=== PATIENT | female | born 1935 | race Caucasian/White ===

== ENCOUNTER → 2016-07-29 | Outpatient (REF) | payer MEDICARE ==
[~2016-07-29] MED LIST: /PANT40TA OR; /WARF25TA PO; ACET-654 PO; ACET65TA OR; ACIPHEX PO; ALDA25TA2 PO; ALEN10TA2 OR; ALEV220C2 PO; ASCO500T PO; ASPI81CH3 PO; ASPIRIN PO; BACITAB3 PO; CALCIUM SUPPLEMENT PO; CIPR500T3 PO; CRES40TA PO; DAILTAB51 PO; DEMA20TA6 PO; DOCU100C PO; DRIS50002 PO; FERR32TA PO; FOLI1TAB2 PO; FURO20TA2 PO; HEPA50VL SQ; LASI40TA PO; LIPI80TA PO; LIPITOR PO; LISI10TA4 OR; LISI10TA4 PO; LISI2.5T3 PO; LISIPOW PO; LORTAB ELIXIR PO; LORTABELIX PO; METO-346 PO; METO25TA74 PO; METR500T10 PO; MILKSUS5 PO; NAPRPOW4 PO; PANT40TA2 PO; PANTOPRAZOLE PO; POTA10CA PO; PRED25TA PO; RECL5INJ2 IV; REFR0.5D8 OD; SIMV80TA OR; TYLE325T5 PO; VICO5TAB PO; VIT D 2000 PO; VITA-56 OR; VITA500046 PO; VITAMIN D PO; VITAMIN E PO; ZOLO50TA OR
[2016-07-29 18:48] LABS: CHOLESTEROL LEVEL 189 MG/DL (<200); TOTAL PROTEIN 7.9 GM/DL (6.4-8.2); TRIGLYCERIDES LEVEL 287 MG/DL (<150)
[2016-07-31 14:00] LABS: ALBUMIN 3.97 GM/DL (3.29-5.55); ALBUMIN % 50.2 % (55.8-66.1); GAMMA GLOBULIN % 17.1 % (11.1-18.8)
== END ==
LOC: M LABDRAW1 16:04
PROVIDERS: ATTEND Family Medicine
DX: E78.5 Hyperlipidemia, unspecified (principal); E11.9 Type 2 diabetes mellitus without complications; E21.3 Hyperparathyroidism, unspecified

== ENCOUNTER → 2016-07-31 | Outpatient (REF) | payer MEDICARE ==
[2016-07-31 15:50] LABS: BASO % 0.4 % (0.0-1.0); EOS # 0.4 K/mm3 (0.0-0.50); EOS % 3.8 % (0.0-3.0); LARGE UNSTAINED CELL # 0.3 K/mm3 (0.0-0.4); LARGE UNSTAINED CELL % 3.5 % (0.0-4.0); LYMPH % 20.3 % (24.0-44.0); MEAN CORPUSCULAR HEMOGLOBIN 30.4 pg (27.0-33.0); MEAN CORPUSCULAR HGB CONC 33.2 g/dl (32.0-36.5); MEAN CORPUSCULAR VOLUME 91.6 fl (80.0-96.0); MONO # 0.6 K/mm3 (0.0-0.8); MONO % 6.4 % (0.0-5.0); NEUTROPHILS # 6.4 K/mm3 (1.8-7.7); NEUTROPHILS % 65.6 % (36.0-66.0); PLATELET COUNT, AUTOMATED 218 k/mm3 (150-450); RED CELL DISTRIBUTION WIDTH 13.7 % (11.5-14.5); WHITE BLOOD COUNT 9.8 K/mm3 (4.0-10.0)
[2016-07-31 16:01] LABS: ALBUMIN 3.9 GM/DL (3.2-5.2); ALBUMIN/GLOBULIN RATIO 0.91 (1.00-1.93); BILIRUBIN,TOTAL 0.5 MG/DL (0.2-1.0); CALCIUM LEVEL 10.2 MG/DL (8.8-10.2); CREATININE FOR GFR 1.09 MG/DL (0.55-1.02); GLOMERULAR FILTRATION RATE 51.3 (>32); MAGNESIUM LEVEL 1.8 MG/DL (1.8-2.4); PERCENT SATURATION 16.9 % (13.2-37.4); POTASSIUM SERUM 3.8 MEQ/L (3.5-5.1); TOTAL PROTEIN 8.2 GM/DL (6.4-8.2)
[2016-07-31 16:24] LABS: FREE T4 1.21 NG/DL (0.76-1.46)
== END ==
LOC: M LABDRAW1 11:49
PROVIDERS: ATTEND Family Medicine
DX: D50.9 Iron deficiency anemia, unspecified (principal); E78.5 Hyperlipidemia, unspecified

== ENCOUNTER 2016-09-19 13:48 | Outpatient (RCR) | payer MEDICARE | END 2016-09-23 | LOC: M CR 13:48 | PROVIDERS: ATTEND Internal Medicine Cardiovascular Disease | DX: Z51.89 Encounter for other specified aftercare (principal); Z95.1 Presence of aortocoronary bypass graft; I25.10 Atherosclerotic heart disease of native coronary artery without angina pectoris ==

== ENCOUNTER 2016-10-06 12:47 | Outpatient (RCR) | payer MEDICARE | END 2016-10-24 | LOC: M CR 12:47 | PROVIDERS: ATTEND Internal Medicine Cardiovascular Disease | DX: Z51.89 Encounter for other specified aftercare (principal); I25.10 Atherosclerotic heart disease of native coronary artery without angina pectoris; Z95.1 Presence of aortocoronary bypass graft ==

== ENCOUNTER → 2016-10-15 | Outpatient (REF) | payer MEDICARE ==
[2016-10-15 18:36] LABS: BASO % 0.4 % (0.0-1.0); EOS # 0.5 K/mm3 (0.0-0.50); EOS % 6.6 % (0.0-3.0); LARGE UNSTAINED CELL # 0.2 K/mm3 (0.0-0.4); LARGE UNSTAINED CELL % 3.4 % (0.0-4.0); LYMPH # 1.9 K/mm3 (1.5-4.5); LYMPH % 23.6 % (24.0-44.0); MEAN CORPUSCULAR HEMOGLOBIN 30.4 pg (27.0-33.0); MEAN CORPUSCULAR HGB CONC 33.4 g/dl (32.0-36.5); MEAN CORPUSCULAR VOLUME 91.1 fl (80.0-96.0); MONO # 0.5 K/mm3 (0.0-0.8); MONO % 6.6 % (0.0-5.0); NEUTROPHILS # 4.1 K/mm3 (1.8-7.7); NEUTROPHILS % 59.4 % (36.0-66.0); PLATELET COUNT, AUTOMATED 201 k/mm3 (150-450)
[2016-10-15 18:38] LABS: ALBUMIN 3.9 GM/DL (3.2-5.2); ALBUMIN/GLOBULIN RATIO 1.03 (1.00-1.93); BILIRUBIN,TOTAL 0.5 MG/DL (0.2-1.0); CALCIUM LEVEL 9.9 MG/DL (8.8-10.2); CREATININE FOR GFR 1.05 MG/DL (0.55-1.02); GLOMERULAR FILTRATION RATE 53.4 (>32); MAGNESIUM LEVEL 2.2 MG/DL (1.8-2.4); PERCENT SATURATION 17.9 % (13.2-37.4); TOTAL PROTEIN 7.7 GM/DL (6.4-8.2)
== END ==
LOC: M LABDRAW1 16:58
PROVIDERS: ATTEND Family Medicine
DX: D50.9 Iron deficiency anemia, unspecified (principal); E21.3 Hyperparathyroidism, unspecified; N18.2 Chronic kidney disease, stage 2 (mild)

== ENCOUNTER → 2017-01-15 | Outpatient (REF) | payer MEDICARE ==
[2017-01-15 13:51] LABS: ALBUMIN 3.4 GM/DL (3.2-5.2); ALBUMIN/GLOBULIN RATIO 0.92 (1.00-1.93); BILIRUBIN,TOTAL 0.5 MG/DL (0.2-1.0); CALCIUM LEVEL 10.1 MG/DL (8.8-10.2); CREATININE FOR GFR 1.16 MG/DL (0.55-1.02); GLOMERULAR FILTRATION RATE 47.6 (>32); POTASSIUM SERUM 4.3 MEQ/L (3.5-5.1); TOTAL PROTEIN 7.1 GM/DL (6.4-8.2)
== END ==
LOC: M LABDRAW1 11:24
PROVIDERS: ATTEND Family Medicine
DX: E21.3 Hyperparathyroidism, unspecified (principal)

== ENCOUNTER 2017-01-21 11:31 | Outpatient (CLI) | payer MEDICARE ==
[~2017-01-21 11:31] MED LIST changes: -ACET-654 PO; +ACET1TAB17 PO; +BACITAB PO; -BACITAB3 PO; -DOCU100C PO; +DOCU100C16 PO; -FOLI1TAB2 PO; +FOLI1TAB4 PO; +METO1TAB32 PO; -METO25TA74 PO; +METR1TAB66 PO; -METR500T10 PO; +ZOLEDRONIC ACID 5 MG in APPROPRIATE DILUENT 1 EA IV ONE
[2017-01-21] MEDS ORDERED: DEMA20TA6 PO (12:29)
== END 2017-01-21 13:15 | disposition home or self-care (01) ==
LOC: M INFU 11:31
PROVIDERS: ATTEND Family Medicine
DX: M81.0 Age-related osteoporosis without current pathological fracture (principal)
CPT/HCPCS: 96365; J3489

== ENCOUNTER → 2017-02-09 | Outpatient (CLI) | payer MEDICARE ==
[~2017-02-09] MED LIST changes: -ZOLEDRONIC ACID 5 MG in APPROPRIATE DILUENT 1 EA IV ONE
--- NOTE | 2017-02-09 14:31 | REPMRS ---
Patient History The patient states she has not had a clinical breast exam in over a year. Patient is postmenopausal and has history of squamous cell at age 78. Family history of breast cancer in maternal grandmother at age 80 and unknown cancer in paternal grandmother at age 80. Took hormonal contraceptives for 2 years. Took estrogen for 20 years. Digital Woman Screen Mammo: February 09, 2017 - Exam #: [id number] Bilateral CC and MLO view(s) were taken. Technologist: Tana Youssef, Technologist Prior study comparison: February 05, 2016, bilateral digital mammo screening bilat, performed at [facility]. January 12, 2015, digital woman screen mammo performed at [facility]. July 29, 2013, bilateral bilat screen digital mammo, performed at [facility] ([facility]). FINDINGS: There are scattered fibroglandular densities. There has been no change in the appearance of the mammogram from the prior studies. There is a mild amount of scattered fibroglandular density which is fairly symmetric. There is no interval development of dominant mass, architectural distortion, or clustered microcalcification suggestive of malignancy. ASSESSMENT: BI-RADS/ACR category 1 mammogram. Negative. Recommendation Routine screening mammogram in 1 year (for women over age 40). This mammogram was interpreted with the aid of an FDA-approved computer-aided dectection system. Electronically Signed By: Frankie Greco MD 02/09/17 1728
== END ==
LOC: M WHC 13:01
PROVIDERS: ATTEND Family Medicine
DX: Z12.31 Encounter for screening mammogram for malignant neoplasm of breast (principal); Z80.3 Family history of malignant neoplasm of breast

== ENCOUNTER → 2017-03-05 | Outpatient (REF) | payer MEDICARE ==
[2017-03-05 13:25] LABS: ALBUMIN 3.9 GM/DL (3.2-5.2); ALBUMIN/GLOBULIN RATIO 0.98 (1.00-1.93); BILIRUBIN,TOTAL 0.6 MG/DL (0.2-1.0); CALCIUM LEVEL 10.6 MG/DL (8.8-10.2); CREATININE FOR GFR 1.3 MG/DL (0.55-1.02); GLOMERULAR FILTRATION RATE 41.7 (>32); POTASSIUM SERUM 4.3 MEQ/L (3.5-5.1); TOTAL PROTEIN 7.9 GM/DL (6.4-8.2)
[2017-03-07 00:06] LABS: FREE KAPPA LIGHT CHAINS SERUM 31.7 mg/L (3.3-19.4); FREE LAMBDA LIGHT CHAINS SERUM 26.9 mg/L (5.7-26.3); KAPPA/LAMBDA RATIO SERUM 1.18 (0.26-1.65)
== END ==
LOC: M LABDRAW1 11:57
PROVIDERS: ATTEND Family Medicine
DX: E78.5 Hyperlipidemia, unspecified (principal); E21.3 Hyperparathyroidism, unspecified; D47.2 Monoclonal gammopathy; E11.9 Type 2 diabetes mellitus without complications

== ENCOUNTER → 2017-06-17 | Outpatient (CLI) | payer MEDICARE ==
[2017-06-17 16:00] LABS: BASO % 0.5 % (0.0-1.0); EOS # 0.2 10^3/uL (0.0-0.50); EOS % 2.9 % (0.0-3.0); IMMATURE GRANULOCYTE % 0.3 % (0-0); LYMPH # 1.4 10^3/uL (1.5-4.5); LYMPH % 21.6 % (24.0-44.0); MEAN CORPUSCULAR HEMOGLOBIN 31.1 pg (27.0-33.0); MEAN CORPUSCULAR HGB CONC 32.5 g/dl (32.0-36.5); MEAN CORPUSCULAR VOLUME 95.5 fl (80.0-96.0); MONO # 0.5 10^3/uL (0.0-0.8); MONO % 7.5 % (0.0-5.0); NEUTROPHILS # 4.4 10^3/uL (1.8-7.7); NEUTROPHILS % 67.2 % (36.0-66.0); PLATELET COUNT, AUTOMATED 178 10^3/uL (150-450); RED CELL DISTRIBUTION WIDTH 13.4 % (11.5-14.5); WHITE BLOOD COUNT 6.5 10^3/uL (4.0-10.0)
[2017-06-17 16:16] LABS: ALBUMIN 3.7 GM/DL (3.2-5.2); ALKALINE PHOSPHATASE 58 U/L (45-117); ALT/SGPT 22 U/L (12-78); ANION GAP 5 MEQ/L (8-16); AST/SGOT 14 U/L (7-37); BILIRUBIN,TOTAL 0.5 MG/DL (0.2-1.0); BLOOD UREA NITROGEN 23 MG/DL (7-18); CALCIUM LEVEL 9.9 MG/DL (8.8-10.2); CARBON DIOXIDE LEVEL 28 MEQ/L (21-32); CHLORIDE LEVEL 104 MEQ/L (98-107); CREATININE FOR GFR 1.02 MG/DL (0.55-1.02); FERRITIN 105 NG/ML (8-252); GLOMERULAR FILTRATION RATE 55.2 (>32); GLUCOSE, FASTING 126 MG/DL (83-110); PERCENT SATURATION 21.4 % (13.2-45.0); POTASSIUM SERUM 4.2 MEQ/L (3.5-5.1); SODIUM LEVEL 137 MEQ/L (136-145); TOTAL IRON BINDING CAPACITY 360 UG/DL (250-450); TOTAL PROTEIN 7.4 GM/DL (6.4-8.2)
[2017-06-21 00:06] LABS: FREE KAPPA LIGHT CHAINS SERUM 25.8 mg/L (3.3-19.4); FREE LAMBDA LIGHT CHAINS SERUM 25.3 mg/L (5.7-26.3); KAPPA/LAMBDA RATIO SERUM 1.02 (0.26-1.65)
[2017-06-23 10:57] LABS: ALBUMIN 4.01 GM/DL (3.29-5.55); ALBUMIN % 54.2 % (55.8-66.1); GAMMA GLOBULIN % 15.1 % (11.1-18.8)
== END ==
LOC: M LABDRAW1 11:08
PROVIDERS: ATTEND Family Medicine
DX: D50.9 Iron deficiency anemia, unspecified (principal); N18.3 Chronic kidney disease, stage 3 (moderate); D47.2 Monoclonal gammopathy; E11.9 Type 2 diabetes mellitus without complications; E21.3 Hyperparathyroidism, unspecified

== ENCOUNTER 2017-07-27 10:19 | Inpatient (IN) | payer MEDICARE ==
[2017-07-27] MEDS: ONDANSETRON 4MG/2ML VIAL (J2405) IV (11:24)
[2017-07-27] MEDS: MORPHINE 4 MG/ML 1ML SYRINGE IV (11:25)
[2017-07-27 11:30] LABS: BASO % 0.1 % (0.0-1.0); HEMATOCRIT 43.9 % (36.0-47.0); HEMOGLOBIN 14.8 g/dl (12.0-16.0); IMMATURE GRANULOCYTE # 0.1 10^3/uL (0-0); IMMATURE GRANULOCYTE % 0.4 % (0-0); LYMPH # 0.7 10^3/uL (1.5-4.5); LYMPH % 3.8 % (24.0-44.0); MEAN CORPUSCULAR HEMOGLOBIN 31.6 pg (27.0-33.0); MEAN CORPUSCULAR HGB CONC 33.7 g/dl (32.0-36.5); MEAN CORPUSCULAR VOLUME 93.6 fl (80.0-96.0); MONO # 0.8 10^3/uL (0.0-0.8); MONO % 4.7 % (0.0-5.0); NEUTROPHILS # 15.5 10^3/uL (1.8-7.7); PLATELET COUNT, AUTOMATED 205 10^3/uL (150-450); RED BLOOD COUNT 4.69 10^6/uL (4.00-5.40); RED CELL DISTRIBUTION WIDTH 12.9 % (11.5-14.5); WHITE BLOOD COUNT 17.1 10^3/uL (4.0-10.0)
[2017-07-27] MEDS: NS 500 ML IV (11:45)
[2017-07-27 11:47] LABS: ALBUMIN 3.8 GM/DL (3.2-5.2); ALBUMIN/GLOBULIN RATIO 0.78 (1.00-1.93); ALKALINE PHOSPHATASE 64 U/L (45-117); ALT/SGPT 18 U/L (12-78); AMYLASE 46 U/L (25-115); ANION GAP 8 MEQ/L (8-16); AST/SGOT 18 U/L (7-37); BILIRUBIN,TOTAL 1.3 MG/DL (0.2-1.0); BLOOD UREA NITROGEN 31 MG/DL (7-18); CALCIUM LEVEL 11.2 MG/DL (8.8-10.2); CARBON DIOXIDE LEVEL 27 MEQ/L (21-32); CHLORIDE LEVEL 101 MEQ/L (98-107); CREATININE FOR GFR 1.42 MG/DL (0.55-1.02); GLOMERULAR FILTRATION RATE 37.7 (>32); GLUCOSE, FASTING 173 MG/DL (83-110); LIPASE 152 U/L (73-393); POTASSIUM SERUM 3.9 MEQ/L (3.5-5.1); SODIUM LEVEL 136 MEQ/L (136-145); TOTAL PROTEIN 8.7 GM/DL (6.4-8.2)
[2017-07-27] MEDS ORDERED: ACETAMINOPHEN TAB 650MG DOSE (2X325MG) PO (15:15)
[2017-07-27] MEDS: LR 1,000 ML IV (15:34)
[2017-07-27] MEDS: PANTOPRAZOLE 40MG INJ (PROTONIX) (C9113) IV (17:20)
[2017-07-27] MEDS: METOPROLOL SUCC *XL* 25MG TAB (TopROL *XL*) PO (21:00)
[2017-07-28] MEDS: LR 1,000 ML IV ×2 (06:09→18:40)
[2017-07-28 07:50] LABS: ANION GAP 6 MEQ/L (8-16); BLOOD UREA NITROGEN 25 MG/DL (7-18); CARBON DIOXIDE LEVEL 28 MEQ/L (21-32); CHLORIDE LEVEL 106 MEQ/L (98-107); CREATININE FOR GFR 0.89 MG/DL (0.55-1.02); GLOMERULAR FILTRATION RATE > 60.0 (>32); GLUCOSE, FASTING 96 MG/DL (83-110); POTASSIUM SERUM 3.8 MEQ/L (3.5-5.1); SODIUM LEVEL 140 MEQ/L (136-145)
[2017-07-28 07:51] LABS: BASO % 0.2 % (0.0-1.0); EOS # 0.1 10^3/uL (0.0-0.50); EOS % 0.9 % (0.0-3.0); HEMATOCRIT 36.5 % (36.0-47.0); IMMATURE GRANULOCYTE % 0.2 % (0-0); LYMPH # 1.1 10^3/uL (1.5-4.5); LYMPH % 13.8 % (24.0-44.0); MEAN CORPUSCULAR HEMOGLOBIN 32.1 pg (27.0-33.0); MEAN CORPUSCULAR HGB CONC 34.2 g/dl (32.0-36.5); MEAN CORPUSCULAR VOLUME 93.6 fl (80.0-96.0); MONO # 0.7 10^3/uL (0.0-0.8); MONO % 8.4 % (0.0-5.0); NEUTROPHILS # 6.3 10^3/uL (1.8-7.7); NEUTROPHILS % 76.5 % (36.0-66.0); PLATELET COUNT, AUTOMATED 131 10^3/uL (150-450); RED CELL DISTRIBUTION WIDTH 12.7 % (11.5-14.5); WHITE BLOOD COUNT 8.2 10^3/uL (4.0-10.0)
[2017-07-28 07:54] LABS: ADD MANUAL DIFFER NO; DIFF SLIDE NUMBER 82; HEMOGLOBIN 12.5 g/dl (12.0-16.0)
[2017-07-28] MEDS: PANTOPRAZOLE 40MG INJ (PROTONIX) (C9113) IV (09:55)
[2017-07-28] MEDS: ONDANSETRON 4MG/2ML VIAL (J2405) IV (13:36)
[2017-07-28] MEDS: MORPHINE 2 MG/ML 1ML SYRINGE IV (16:19)
[2017-07-28] MEDS: METOPROLOL SUCC *XL* 25MG TAB (TopROL *XL*) PO (21:00)
[2017-07-29] MEDS: PANTOPRAZOLE 40MG INJ (PROTONIX) (C9113) IV (08:13)
[2017-07-29] MEDS: LR 1,000 ML IV ×2 (08:13→21:20)
[2017-07-29] MEDS: METOPROLOL SUCC *XL* 25MG TAB (TopROL *XL*) PO (21:30)
[2017-07-30] MEDS: PANTOPRAZOLE 40MG INJ (PROTONIX) (C9113) IV (07:46)
[2017-07-30] MEDS: TORSEMIDE 20 MG TAB PO (11:00)
[2017-07-30] MEDS: DOCUSATE SODIUM 100 MG CAP PO (11:22)
[2017-07-30] MEDS: ASPIRIN 81 MG ENTERIC TAB PO (11:22)
[2017-07-30] MEDS: SPIRONOLACTONE 25 MG TAB PO (11:22)
[2017-07-30] MEDS ORDERED: PANTOPRAZOLE 40MG TAB (PROTONIX) PO (21:00)
[2017-07-30] MEDS ORDERED: LISINOPRIL *2.5 MG* TAB PO (21:00)
== END 2017-07-30 17:56 | disposition home health service (06) | DRG 390 ==
LOC: M ED 10:19 → M ED INP 15:15 → M MSPAV 16:24
DX: K56.50 Intestinal adhesions [bands], unspecified as to partial versus complete obstruction (principal); K21.9 Gastro-esophageal reflux disease without esophagitis; I25.10 Atherosclerotic heart disease of native coronary artery without angina pectoris; I10 Essential (primary) hypertension; E78.5 Hyperlipidemia, unspecified; Z90.49 Acquired absence of other specified parts of digestive tract; Z96.652 Presence of left artificial knee joint; Z95.3 Presence of xenogenic heart valve; Z95.1 Presence of aortocoronary bypass graft; Z79.82 Long term (current) use of aspirin; Z79.899 Other long term (current) drug therapy

== ENCOUNTER 2017-08-25 08:06 | Day surgery (SDC) | payer MEDICARE ==
[2017-08-25] MEDS: NS 1,000 ML IV (08:30)
[2017-08-25] MEDS ORDERED: PROPOFOL 200 MG/20 ML VIAL As Ordered (09:10)
[2017-08-25] MEDS ORDERED: LIDOCAINE 2% INJ 100 MG/5 ML SDV (FOR ANES.) As Ordered (09:10)
== END 2017-08-25 09:54 | disposition home or self-care (01) ==
LOC: M OPP 08:06
DX: K22.5 Diverticulum of esophagus, acquired (principal); K22.2 Esophageal obstruction; R13.11 Dysphagia, oral phase; R13.14 Dysphagia, pharyngoesophageal phase; I11.9 Hypertensive heart disease without heart failure; E78.00 Pure hypercholesterolemia, unspecified; E21.2 Other hyperparathyroidism; K57.30 Diverticulosis of large intestine without perforation or abscess without bleeding; M12.9 Arthropathy, unspecified; M81.0 Age-related osteoporosis without current pathological fracture; Z90.49 Acquired absence of other specified parts of digestive tract; Z85.828 Personal history of other malignant neoplasm of skin; Z95.2 Presence of prosthetic heart valve; Z96.651 Presence of right artificial knee joint; Z78.0 Asymptomatic menopausal state; Z90.710 Acquired absence of both cervix and uterus; Z80.3 Family history of malignant neoplasm of breast
CPT/HCPCS: 43249

== ENCOUNTER → 2017-10-15 | Outpatient (CLI) | payer MEDICARE ==
[2017-10-15 10:54] LABS: BASO % 0.2 % (0.0-1.0); EOS # 0.2 10^3/uL (0.0-0.50); EOS % 1.9 % (0.0-3.0); HEMATOCRIT 36.7 % (36.0-47.0); HEMOGLOBIN 12.5 g/dl (12.0-16.0); IMMATURE GRANULOCYTE % 0.2 % (0-3.0); LYMPH # 1.2 10^3/uL (1.5-4.5); LYMPH % 14.8 % (24.0-44.0); MEAN CORPUSCULAR HEMOGLOBIN 31.5 pg (27.0-33.0); MEAN CORPUSCULAR HGB CONC 34.1 g/dl (32.0-36.5); MEAN CORPUSCULAR VOLUME 92.4 fl (80.0-96.0); MONO # 0.6 10^3/uL (0.0-0.8); NEUTROPHILS # 6.1 10^3/uL (1.8-7.7); NEUTROPHILS % 75.9 % (36.0-66.0); PLATELET COUNT, AUTOMATED 211 10^3/uL (150-450); RED BLOOD COUNT 3.97 10^6/uL (4.00-5.40); RED CELL DISTRIBUTION WIDTH 12.6 % (11.5-14.5); RETIC HEMOGLOBIN EQUIVALENT 33.7 pg (24-36); RETICULOCYTE # 60.3 10^9/L (17-77); RETICULOCYTE % 1.5 % (0.5-1.5); WHITE BLOOD COUNT 8.1 10^3/uL (4.0-10.0)
[2017-10-15 11:14] LABS: ALBUMIN 3.6 GM/DL (3.2-5.2); ALKALINE PHOSPHATASE 78 U/L (45-117); ALT/SGPT 16 U/L (12-78); ANION GAP 8 MEQ/L (8-16); AST/SGOT 7 U/L (7-37); BILIRUBIN,TOTAL 0.5 MG/DL (0.2-1.0); BLOOD UREA NITROGEN 25 MG/DL (7-18); C REACTIVE PROTEIN QUANTITATIV 2.16 MG/DL (0.00-0.30); CALCIUM LEVEL 10.5 MG/DL (8.8-10.2); CARBON DIOXIDE LEVEL 26 MEQ/L (21-32); CHLORIDE LEVEL 103 MEQ/L (98-107); CHOLESTEROL LEVEL 158 MG/DL (<200); CREATININE FOR GFR 1.21 MG/DL (0.55-1.30); FREE T4 1.22 NG/DL (0.76-1.46); GLOMERULAR FILTRATION RATE 45.2 (>32); GLUCOSE, FASTING 119 MG/DL (70-100); HDL CHOLESTEROL 44 MG/DL (>40); LDL CHOLESTEROL 79.2 MG/DL (<100); NON-HDL-C 114 MG/DL; POTASSIUM SERUM 4.2 MEQ/L (3.5-5.1); SODIUM LEVEL 137 MEQ/L (136-145); TOTAL PROTEIN 7.6 GM/DL (6.4-8.2); TRIGLYCERIDES LEVEL 174 MG/DL (<150)
[2017-10-15 11:19] LABS: ESTIMATED AVERAGE GLUCOSE 131 MG/DL (60-110); HEMOGLOBIN A1c 6.2 %
== END ==
LOC: M LAB 09:59
DX: D50.9 Iron deficiency anemia, unspecified (principal); E78.5 Hyperlipidemia, unspecified; E11.9 Type 2 diabetes mellitus without complications; E21.3 Hyperparathyroidism, unspecified
CPT/HCPCS: 84443

== ENCOUNTER → 2018-01-08 | Outpatient (REF) | payer MEDICARE ==
[2018-01-08 14:02] LABS: ALBUMIN 3.9 GM/DL (3.2-5.2); ANION GAP 10 MEQ/L (8-16); BLOOD UREA NITROGEN 24 MG/DL (7-18); CALCIUM LEVEL 10.8 MG/DL (8.8-10.2); CARBON DIOXIDE LEVEL 25 MEQ/L (21-32); CHLORIDE LEVEL 107 MEQ/L (98-107); CREATININE FOR GFR 1.29 MG/DL (0.55-1.30); GLUCOSE, FASTING 103 MG/DL (70-100); PHOSPHORUS LEVEL 2.7 MG/DL (2.5-4.9); POTASSIUM SERUM 4.7 MEQ/L (3.5-5.1); SODIUM LEVEL 142 MEQ/L (136-145)
== END ==
LOC: M LABDRAW1 11:19
DX: I50.32 Chronic diastolic (congestive) heart failure (principal)
CPT/HCPCS: 80069

== ENCOUNTER → 2018-01-19 | Outpatient (REF) | payer MEDICARE ==
[2018-01-19 13:24] LABS: ALBUMIN 3.8 GM/DL (3.2-5.2); ALKALINE PHOSPHATASE 61 U/L (45-117); ALT/SGPT 21 U/L (12-78); ANION GAP 8 MEQ/L (8-16); AST/SGOT 13 U/L (7-37); BILIRUBIN,TOTAL 0.6 MG/DL (0.2-1.0); BLOOD UREA NITROGEN 24 MG/DL (7-18); CALCIUM LEVEL 10.3 MG/DL (8.8-10.2); CARBON DIOXIDE LEVEL 29 MEQ/L (21-32); CHLORIDE LEVEL 104 MEQ/L (98-107); CREATININE FOR GFR 1.23 MG/DL (0.55-1.30); GLOMERULAR FILTRATION RATE 44.4 (>32); GLUCOSE, FASTING 111 MG/DL (70-100); POTASSIUM SERUM 4.6 MEQ/L (3.5-5.1); SODIUM LEVEL 141 MEQ/L (136-145); TOTAL PROTEIN 7.6 GM/DL (6.4-8.2)
[2018-01-19 13:25] LABS: PTH INTACT 129.4 PG/ML (18.5-88.0); TOTAL 25(OH) VITAMIN D 43.6 NG/ML (30.0-100.0)
[2018-01-19 13:26] LABS: VITAMIN B12 LEVEL 621 PG/ML (247-911)
[2018-01-19 13:31] LABS: ESTIMATED AVERAGE GLUCOSE 126 MG/DL (60-110)
[2018-01-22 00:06] LABS: FREE KAPPA LIGHT CHAINS SERUM 31.9 mg/L (3.3-19.4); FREE LAMBDA LIGHT CHAINS SERUM 24.3 mg/L (5.7-26.3); KAPPA/LAMBDA RATIO SERUM 1.31 (0.26-1.65)
== END ==
LOC: M LABDRAW1 12:00
DX: E55.9 Vitamin D deficiency, unspecified (principal); D47.2 Monoclonal gammopathy; E11.9 Type 2 diabetes mellitus without complications; D50.9 Iron deficiency anemia, unspecified
CPT/HCPCS: 82607

== ENCOUNTER → 2018-02-18 | Outpatient (CLI) | payer MEDICARE | LOC: M WHC 13:57 | DX: Z12.31 Encounter for screening mammogram for malignant neoplasm of breast (principal); M85.851 Other specified disorders of bone density and structure, right thigh; M85.852 Other specified disorders of bone density and structure, left thigh | CPT/HCPCS: 77067 ==

== ENCOUNTER → 2018-04-09 | Outpatient (REF) | payer MEDICARE ==
[2018-04-09 12:02] LABS: BASO % 0.2 % (0.0-1.0); EOS # 0.3 10^3/uL (0.0-0.50); EOS % 3.8 % (0.0-3.0); HEMATOCRIT 37.2 % (36.0-47.0); HEMOGLOBIN 12.1 g/dl (12.0-15.5); IMMATURE GRANULOCYTE % 0.6 % (0-3.0); LYMPH # 1.1 10^3/uL (1.5-4.5); LYMPH % 17.2 % (24.0-44.0); MEAN CORPUSCULAR HEMOGLOBIN 31.4 pg (27.0-33.0); MEAN CORPUSCULAR HGB CONC 32.5 g/dl (32.0-36.5); MEAN CORPUSCULAR VOLUME 96.6 fl (80.0-96.0); MONO # 0.4 10^3/uL (0.0-0.8); MONO % 6.2 % (0.0-5.0); NEUTROPHILS # 4.7 10^3/uL (1.8-7.7); PLATELET COUNT, AUTOMATED 173 10^3/uL (150-450); RED BLOOD COUNT 3.85 10^6/uL (4.00-5.40); RED CELL DISTRIBUTION WIDTH 13.8 % (11.5-14.5); RETIC HEMOGLOBIN EQUIVALENT 31.9 pg (24-36); RETICULOCYTE # 71.2 10^9/L (17-77); RETICULOCYTE % 1.9 % (0.5-1.5); WHITE BLOOD COUNT 6.6 10^3/uL (4.0-10.0)
[2018-04-09 12:38] LABS: ALBUMIN 3.4 GM/DL (3.2-5.2); ALBUMIN/GLOBULIN RATIO 0.89 (1.00-1.93); ALKALINE PHOSPHATASE 60 U/L (45-117); ALT/SGPT 23 U/L (12-78); ANION GAP 8 MEQ/L (8-16); AST/SGOT 14 U/L (7-37); BILIRUBIN,TOTAL 0.5 MG/DL (0.2-1.0); BLOOD UREA NITROGEN 16 MG/DL (7-18); C REACTIVE PROTEIN QUANTITATIV 2.55 MG/DL (0.00-0.30); CALCIUM LEVEL 10.6 MG/DL (8.8-10.2); CARBON DIOXIDE LEVEL 24 MEQ/L (21-32); CHLORIDE LEVEL 106 MEQ/L (98-107); CHOLESTEROL LEVEL 149 MG/DL (<200); CHOLESTEROL RISK RATIO 4.138 (<5); CPK CREATINE PHOSPHOKINASE 41 U/L (26-192); CREATININE FOR GFR 1.15 MG/DL (0.55-1.30); FREE T4 1.25 NG/DL (0.76-1.46); GLUCOSE, FASTING 105 MG/DL (70-100); HDL CHOLESTEROL 36 MG/DL (>40); LDL CHOLESTEROL 78 MG/DL (<100); MAGNESIUM LEVEL 2.5 MG/DL (1.8-2.4); NON-HDL-C 113 MG/DL; POTASSIUM SERUM 4.5 MEQ/L (3.5-5.1); SODIUM LEVEL 138 MEQ/L (136-145); TOTAL PROTEIN 7.2 GM/DL (6.4-8.2); TRIGLYCERIDES LEVEL 175 MG/DL (<150)
[2018-04-09 12:53] LABS: ESTIMATED AVERAGE GLUCOSE 131 MG/DL (60-110); HEMOGLOBIN A1c 6.2 %
[2018-04-09 13:15] LABS: PTH INTACT 114.9 PG/ML (18.5-88.0)
[2018-04-09 13:27] LABS: HEPATITIS B SURFACE ANTIGEN NEGATIVE (NEGATIVE)
[2018-04-09 13:55] LABS: HEP C VIRUS AB INDEX SOURCE PT 0.1 INDEX (0.0-0.8); HIV SCREEN CENTAUR SOURCE NEGATIVE (NEGATIVE)
== END ==
LOC: M LABDRAW1 09:02
DX: D50.9 Iron deficiency anemia, unspecified (principal); E78.5 Hyperlipidemia, unspecified; E11.9 Type 2 diabetes mellitus without complications; E21.3 Hyperparathyroidism, unspecified
CPT/HCPCS: 82550

== ENCOUNTER 2018-05-03 13:52 | Outpatient (CLI) | payer MEDICARE ==
[2018-05-03] MEDS: ZOLEDRONIC ACID 5 MG in APPROPRIATE DILUENT 1 EA IV (14:16)
== END 2018-05-03 15:00 | disposition home or self-care (01) ==
LOC: M INFU 13:52
DX: M81.0 Age-related osteoporosis without current pathological fracture (principal); N39.3 Stress incontinence (female) (male); I11.0 Hypertensive heart disease with heart failure; I50.9 Heart failure, unspecified; E78.00 Pure hypercholesterolemia, unspecified; E78.5 Hyperlipidemia, unspecified; R01.1 Cardiac murmur, unspecified; Z88.8 Allergy status to other drugs, medicaments and biological substances; Z96.652 Presence of left artificial knee joint; Z90.710 Acquired absence of both cervix and uterus; Z90.49 Acquired absence of other specified parts of digestive tract
CPT/HCPCS: J3489

== ENCOUNTER → 2018-06-03 | Outpatient (REF) | payer MEDICARE ==
[2018-06-03 17:25] LABS: ANION GAP 7 MEQ/L (8-16); BLOOD UREA NITROGEN 25 MG/DL (7-18); CALCIUM LEVEL 11.4 MG/DL (8.8-10.2); CARBON DIOXIDE LEVEL 28 MEQ/L (21-32); CHLORIDE LEVEL 101 MEQ/L (98-107); CREATININE FOR GFR 1.57 MG/DL (0.55-1.30); GLOMERULAR FILTRATION RATE 33.5 (>32); GLUCOSE, FASTING 125 MG/DL (70-100); POTASSIUM SERUM 4.3 MEQ/L (3.5-5.1); SODIUM LEVEL 136 MEQ/L (136-145)
== END ==
LOC: M LAB REF 16:53
DX: I50.32 Chronic diastolic (congestive) heart failure (principal)
CPT/HCPCS: 80048

== ENCOUNTER → 2018-06-14 | Outpatient (REF) | payer MEDICARE ==
[2018-06-14 16:07] LABS: ALBUMIN 3.8 GM/DL (3.2-5.2); ALBUMIN/GLOBULIN RATIO 1.03 (1.00-1.93); ALKALINE PHOSPHATASE 68 U/L (45-117); ALT/SGPT 22 U/L (12-78); ANION GAP 6 MEQ/L (8-16); AST/SGOT 23 U/L (7-37); BILIRUBIN,TOTAL 0.4 MG/DL (0.2-1.0); BLOOD UREA NITROGEN 27 MG/DL (7-18); CALCIUM LEVEL 10.9 MG/DL (8.8-10.2); CARBON DIOXIDE LEVEL 30 MEQ/L (21-32); CHLORIDE LEVEL 103 MEQ/L (98-107); CREATININE FOR GFR 1.77 MG/DL (0.55-1.30); GLOMERULAR FILTRATION RATE 29.2 (>32); GLUCOSE, FASTING 142 MG/DL (70-100); SODIUM LEVEL 139 MEQ/L (136-145); TOTAL PROTEIN 7.5 GM/DL (6.4-8.2)
== END ==
LOC: M LABDRAW1 14:15
DX: E11.9 Type 2 diabetes mellitus without complications (principal)
CPT/HCPCS: 80053

== ENCOUNTER → 2018-06-16 | Outpatient (CLI) | payer MEDICARE ==
[~2018-06-16] MED LIST changes: -/PANT40TA OR; -/WARF25TA PO; -ACET1TAB17 PO; -ACET65TA OR; -ACIPHEX PO; -ALDA25TA2 PO; -ALEN10TA2 OR; -ALEV220C2 PO; -ASCO500T PO; -ASPI81CH3 PO; -ASPIRIN PO; -BACITAB PO; -CALCIUM SUPPLEMENT PO; -CIPR500T3 PO; -CRES40TA PO; -DAILTAB51 PO; -DEMA20TA6 PO; -DOCU100C16 PO; -DRIS50002 PO; -FERR32TA PO; -FOLI1TAB4 PO; -FURO20TA2 PO; -HEPA50VL SQ; +ISOVUE-370 76% 100ML VIAL (Q9967) As Ordered; -LASI40TA PO; -LIPI80TA PO; -LIPITOR PO; -LISI10TA4 OR; -LISI10TA4 PO; -LISI2.5T3 PO; -LISIPOW PO; -LORTAB ELIXIR PO; -LORTABELIX PO; -METO-346 PO; -METO1TAB32 PO; -METR1TAB66 PO; -MILKSUS5 PO; -NAPRPOW4 PO; -PANT40TA2 PO; -PANTOPRAZOLE PO; -POTA10CA PO; -PRED25TA PO; -RECL5INJ2 IV; -REFR0.5D8 OD; -SIMV80TA OR; -TYLE325T5 PO; -VICO5TAB PO; -VIT D 2000 PO; -VITA-56 OR; -VITA500046 PO; -VITAMIN D PO; -VITAMIN E PO; -ZOLO50TA OR
== END ==
LOC: M RAD 09:18
DX: I71.2 Thoracic aortic aneurysm, without rupture (principal); I70.0 Atherosclerosis of aorta; I25.10 Atherosclerotic heart disease of native coronary artery without angina pectoris
CPT/HCPCS: 71250

== ENCOUNTER → 2018-08-18 | Outpatient (REF) | payer MEDICARE ==
[~2018-08-18] MED LIST changes: +/PANT40TA OR; +/WARF25TA PO; +ACET1TAB55 PO; +ACET65TA OR; +ACIPHEX PO; +ALDA25TA2 PO; +ALEN10TA2 OR; +ALEV220C2 PO; +ALEV220T22 PO; +ASCO500T PO; +ASPI1TAB PO; +ASPI81CH3 PO; +ASPIRIN PO; +BACITAB PO; +BIOTCAP PO; +CALCIUM SUPPLEMENT PO; +CIPR500T3 PO; +CRES40TA PO; +DAILTAB51 PO; +DEMA20TA6 PO; +DOCU100C16 PO; +DRIS50003 PO; +FERR32TA PO; +FOLI1TAB11 PO; +FURO20TA2 PO; +HEPA50VL SQ; -ISOVUE-370 76% 100ML VIAL (Q9967) As Ordered; +KLOR10TA76 PO; +LASI40TA9 PO; +LIPI80TA PO; +LIPITOR PO; +LISI10TA4 OR; +LISI10TA4 PO; +LISI2.5T5 PO; +LISIPOW PO; +LORTAB ELIXIR PO; +LORTABELIX PO; +METO-346 PO; +METO1TAB32 PO; +METO1TAB7 PO; +METR-201 PO; +MILKSUS5 PO; +NAPRPOW4 PO; +NITR4TASL SL; +PANT40TA3 PO; +PANTOPRAZOLE PO; +PRED25TA PO; +RECL5INJ2 IV; +REFR0.5D8 OD; +ROSU40TA3 PO; +SIMV80TA OR; +SPIR-10 PO; +TYLE325T5 PO; +VICO5TAB PO; +VIT D 2000 PO; +VITA-56 OR; +VITA500046 PO; +VITAMIN D PO; +VITAMIN E PO; +ZOLO50TA OR
[2018-08-18 15:48] LABS: ALBUMIN 4.2 GM/DL (3.2-5.2); BILIRUBIN,TOTAL 0.4 MG/DL (0.2-1.0); CALCIUM LEVEL 11.2 MG/DL (8.8-10.2); CREATININE FOR GFR 1.5 MG/DL (0.55-1.30); GLOMERULAR FILTRATION RATE 35.3 (>32); POTASSIUM SERUM 4.3 MEQ/L (3.5-5.1); TOTAL PROTEIN 8.2 GM/DL (6.4-8.2)
== END ==
LOC: M LABDRAW1 14:03
PROVIDERS: ATTEND Physician Assistant Medical
DX: N18.3 Chronic kidney disease, stage 3 (moderate) (principal)

== ENCOUNTER → 2018-08-18 | Outpatient (REF) | payer MEDICARE ==
[2018-08-18 15:48] LABS: CALCIUM LEVEL 11.1 MG/DL (8.8-10.2); CREATININE FOR GFR 1.48 MG/DL (0.55-1.30); GLOMERULAR FILTRATION RATE 35.9 (>32); POTASSIUM SERUM 4.3 MEQ/L (3.5-5.1)
== END ==
LOC: M LABDRAW1 14:06
PROVIDERS: ATTEND Family Medicine
DX: I50.32 Chronic diastolic (congestive) heart failure (principal)

== ENCOUNTER → 2018-09-21 | Outpatient (REF) | payer MEDICARE ==
[2018-09-21 13:03] LABS: BASO % 0.3 % (0.0-1.0); EOS # 0.2 10^3/uL (0.0-0.50); EOS % 2.6 % (0.0-3.0); HEMATOCRIT 37.1 % (36.0-47.0); HEMOGLOBIN 12.4 g/dl (12.0-15.5); LYMPH # 1.2 10^3/uL (1.5-4.5); LYMPH % 17.2 % (24.0-44.0); MEAN CORPUSCULAR HEMOGLOBIN 31.8 pg (27.0-33.0); MEAN CORPUSCULAR HGB CONC 33.4 g/dl (32.0-36.5); MEAN CORPUSCULAR VOLUME 95.1 fl (80.0-96.0); MONO # 0.5 10^3/uL (0.0-0.8); MONO % 7.1 % (0.0-5.0); NEUTROPHILS # 5.2 10^3/uL (1.8-7.7); NEUTROPHILS % 72.5 % (36.0-66.0); PLATELET COUNT, AUTOMATED 192 10^3/uL (150-450); WHITE BLOOD COUNT 7.2 10^3/uL (4.0-10.0)
[2018-09-21 14:08] LABS: ALBUMIN 3.7 GM/DL (3.2-5.2); ALT/SGPT 20 U/L (12-78); BILIRUBIN,TOTAL 0.6 MG/DL (0.2-1.0); BLOOD UREA NITROGEN 29 MG/DL (7-18); CALCIUM LEVEL 10.9 MG/DL (8.8-10.2); CARBON DIOXIDE LEVEL 25 MEQ/L (21-32); CHLORIDE LEVEL 103 MEQ/L (98-107); CREATININE FOR GFR 1.57 MG/DL (0.55-1.30); GLOMERULAR FILTRATION RATE 33.5 (>32); GLUCOSE, FASTING 115 MG/DL (70-100); POTASSIUM SERUM 4.4 MEQ/L (3.5-5.1); SODIUM LEVEL 137 MEQ/L (136-145); TOTAL PROTEIN 7.5 GM/DL (6.4-8.2)
[2018-09-21 14:28] LABS: HEMOGLOBIN A1c 6.4 %
[2018-09-23 08:33] LABS: KAPPA/LAMBDA RATIO URINE 18.24 (2.04-10.37)
[2018-09-23 14:34] LABS: ALBUMIN % 53.3 % (55.8-66.1); ALPHA-1-GLOBULIN % 4.8 % (2.9-4.9); ALPHA-1-GLOBULINS 0.36 GM/DL (0.17-0.41); ALPHA-2-GLOBULINS 1.03 GM/DL (0.42-0.99); ALPHA-2-GLOBULINS % 13.7 % (7.1-11.8); BETA-1-GLOBULINS 0.47 GM/DL (0.28-0.60); BETA-1-GLOBULINS % 6.3 % (4.7-7.2); BETA-2-GLOBULINS 0.54 GM/DL (0.19-0.55); BETA-2-GLOBULINS % 7.2 % (3.2-6.5); GAMMA GLOBULIN % 14.7 % (11.1-18.8)
== END ==
LOC: M LABDRAW1 10:18
PROVIDERS: ATTEND Family Medicine
DX: D47.2 Monoclonal gammopathy (principal); E11.9 Type 2 diabetes mellitus without complications; D50.9 Iron deficiency anemia, unspecified

== ENCOUNTER 2018-10-20 13:48 | Emergency (ER) | payer MEDICARE ==
[~2018-10-20] VITALS: Ht 152.4 cm; Wt 75.0 kg
[~2018-10-20 13:48] MED LIST changes: -/PANT40TA OR; -/WARF25TA PO; -ASPI1TAB PO; -ASPI81CH3 PO; +ASPI81CH48 PO; +ASPI81TA26 PO; +COUM1TAB18 PO; +HEPA1INJ23 SQ; -HEPA50VL SQ; +LISI-1046 PO; -LISI2.5T5 PO; -METR-201 PO; +METR-265 PO; +PROT1TAB2 OR
[2018-10-20] MEDS ORDERED: RANI1SYP PO (14:06)
[2018-10-20] MEDS ORDERED: LISI-1046 PO (14:06)
--- NOTE | 2018-10-20 14:21 | REP ---
Clinical: Acute chest pain . Comparison: 07/04/2016 . Findings: The mediastinum and cardiac silhouette are stable and within normal limits for portable technique. 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 The lung mejia are clear without acute consolidation, effusion, or pneumothorax. Skeletal structures are intact. Impression: No acute cardiopulmonary process appreciated. Electronically Signed by Ricky Hernandez MD 10/20/2018 02:13 P
[2018-10-20 14:56] LABS: BASO % 0.2 % (0.0-1.0); EOS # 0.1 10^3/uL (0.0-0.50); HEMATOCRIT 38.4 % (36.0-47.0); LYMPH # 0.9 10^3/uL (1.5-4.5); LYMPH % 9.9 % (24.0-44.0); MEAN CORPUSCULAR HEMOGLOBIN 32.4 pg (27.0-33.0); MEAN CORPUSCULAR HGB CONC 33.9 g/dl (32.0-36.5); MEAN CORPUSCULAR VOLUME 95.8 fl (80.0-96.0); MONO # 0.6 10^3/uL (0.0-0.8); MONO % 6.8 % (0.0-5.0); NEUTROPHILS % 81.2 % (36.0-66.0); PLATELET COUNT, AUTOMATED 156 10^3/uL (150-450); RED BLOOD COUNT 4.01 10^6/uL (4.00-5.40); WHITE BLOOD COUNT 8.6 10^3/uL (4.0-10.0)
[2018-10-20 15:09] LABS: INR 1.04; PROTHROMBIN TIME 13.7 SECONDS (12.1-14.4)
[2018-10-20 15:10] LABS: PARTIAL THROMBOPLASTIN TIME 24.1 SECONDS (25.4-37.6)
[2018-10-20 15:12] LABS: D-DIMER QUANT 2927.37 ng/ml (<500)
[2018-10-20 15:14] LABS: BLOOD UREA NITROGEN 31 MG/DL (7-18); CALCIUM LEVEL 11.3 MG/DL (8.8-10.2); CARBON DIOXIDE LEVEL 28 MEQ/L (21-32); CHLORIDE LEVEL 101 MEQ/L (98-107); CPK CREATINE PHOSPHOKINASE 72 U/L (26-192); CREATININE FOR GFR 1.68 MG/DL (0.55-1.30); GLOMERULAR FILTRATION RATE 30.9 (>32); GLUCOSE, FASTING 148 MG/DL (70-100); MB/CK RELATIVE INDEX 1.81 (< OR =4); NT-PRO BNP 172 PG/ML (<450); POTASSIUM SERUM 4.4 MEQ/L (3.5-5.1); SODIUM LEVEL 134 MEQ/L (136-145); TROPONIN I < 0.02 NG/ML (< 0.10)
--- NOTE | 2018-10-20 16:33 | REP ---
Clinical: Lower extremity pain . Technique: Abdalla scale and color Doppler evaluation using linear high frequency transducer. Findings: Ultrasound examination of the right and left lower extremity deep venous structures from the common femoral vein to the popliteal vein demonstrates normal compressibility flow and wave patterns in response to respiration and augmentation. There is no evidence for deep venous thrombosis. Impression: No evidence for deep venous thrombosis. Electronically Signed by Ricky Hernandez MD 10/20/2018 04:24 P
[2018-10-20 18:06] LABS: CPK CREATINE PHOSPHOKINASE 74 U/L (26-192); MB/CK RELATIVE INDEX 1.62 (< OR =4); TROPONIN I < 0.02 NG/ML (< 0.10)
[2018-10-20 20:18] LABS: CPK CREATINE PHOSPHOKINASE 83 U/L (26-192); MB/CK RELATIVE INDEX 2.29 (< OR =4); TROPONIN I < 0.02 NG/ML (< 0.10)
[2018-10-20 21:16] VITALS: O2SAT 97
[2018-10-20 21:22] LABS: BLOOD UREA NITROGEN 30 MG/DL (7-18); CALCIUM LEVEL 10.6 MG/DL (8.8-10.2); CARBON DIOXIDE LEVEL 25 MEQ/L (21-32); CHLORIDE LEVEL 104 MEQ/L (98-107); CREATININE FOR GFR 1.75 MG/DL (0.55-1.30); GLOMERULAR FILTRATION RATE 29.5 (>32); GLUCOSE, FASTING 192 MG/DL (70-100); POTASSIUM SERUM 4.4 MEQ/L (3.5-5.1); SODIUM LEVEL 136 MEQ/L (136-145)
[2018-10-20 21:37] VITALS: BP 104/75
--- NOTE | 2018-10-21 10:16 | ECGEPIP ---
Stationary ECG Study [facility] - ED Test Date: 2018-10-20 Pat Name: DUKE FLANNERY Department: Room: - Gender: F Clin Nurse Spec: PONCE : 1935 Requested By: Gallo Coronado Order Number: [id number] Reading MD: Liz Levi Measurements Intervals [place] Rate: 68 P: 3 NC: 204 QRS: -13 QRSD: 122 T: -1 QT: 414 QTc: 443 Interpretive Statements SINUS RHYTHM RIGHT BUNDLE BRANCH BLOCK DECREASED RATE 07/05/16 Electronically Signed On 10-21-2018 10:15:56 EDT by Liz Levi
--- NOTE | 2018-10-21 10:19 | ECGEPIP ---
Stationary ECG Study [facility] - ED Test Date: 2018-10-20 Pat Name: DUKE FLANNERY Department: Room: - Gender: F [place] Operator: PONCE : 1935 Requested By: Gallo Coronado Order Number: [id number] Reading MD: Liz Levi Measurements Intervals [place] Rate: 64 P: 12 IL: 226 QRS: -17 QRSD: 117 T: 8 QT: 409 QTc: 424 Interpretive Statements SINUS RHYTHM WITH FIRST DEGREE AV BLOCK LOW QRS VOLTAGE IN PRECORDIAL LEADS INCOMPLETE RIGHT BUNDLE BRANCH BLOCK SIMILAR 10/20/18 Electronically Signed On 10-21-2018 10:19:42 EDT by Liz Levi
--- NOTE | 2018-10-21 10:23 | ECGEPIP ---
Stationary ECG Study [facility] - ED Test Date: 2018-10-20 Pat Name: DUKE FLANNERY Department: Room: - Gender: F Lang Interpreter: CORRIE : 1935 Requested By: Gallo Coronado Order Number: [id number] Reading MD: Liz Levi Measurements Intervals [place] Rate: 65 P: 13 NM: 239 QRS: -10 QRSD: 112 T: 12 QT: 404 QTc: 421 Interpretive Statements SINUS RHYTHM WITH FIRST DEGREE AV BLOCK INCOMPLETE RIGHT BUNDLE BRANCH BLOCK SIMILAR 10/20/18 Electronically Signed On 10-21-2018 10:23:10 EDT by Liz Levi
== END 2018-10-20 21:44 | disposition home or self-care (01) ==
LOC: EDBD 13:48 → M ED 13:48
DX: I20.8 Other forms of angina pectoris (principal); K21.9 Gastro-esophageal reflux disease without esophagitis; I11.0 Hypertensive heart disease with heart failure; I50.9 Heart failure, unspecified; N18.3 Chronic kidney disease, stage 3 (moderate); E78.5 Hyperlipidemia, unspecified; E66.9 Obesity, unspecified; I87.2 Venous insufficiency (chronic) (peripheral); F95.9 Tic disorder, unspecified; Z79.899 Other long term (current) drug therapy; Z79.82 Long term (current) use of aspirin; Z88.8 Allergy status to other drugs, medicaments and biological substances

== ENCOUNTER → 2018-12-22 | Outpatient (REF) | payer MEDICARE ==
[~2018-12-22] MED LIST changes: +RANI1SYP PO
[2018-12-22 12:23] LABS: CALCIUM LEVEL 11.1 MG/DL (8.8-10.2); CREATININE FOR GFR 1.72 MG/DL (0.55-1.30); GLOMERULAR FILTRATION RATE 30.1 (>32); MAGNESIUM LEVEL 2.5 MG/DL (1.8-2.4); POTASSIUM SERUM 4.4 MEQ/L (3.5-5.1)
== END ==
LOC: M LABDRAW1 08:42
PROVIDERS: ATTEND Physician Assistant
DX: I50.32 Chronic diastolic (congestive) heart failure (principal); E83.42 Hypomagnesemia

== ENCOUNTER → 2019-02-02 | Outpatient (REF) | payer MEDICARE ==
[~2019-02-02] MED LIST changes: -ROSU40TA3 PO; +ROSU40TA4 PO; +TORS10TA3 PO; +TORS20TA2 PO
[2019-02-02 11:58] LABS: BASO % 0.4 % (0.0-1.0); EOS # 0.2 10^3/uL (0.0-0.50); EOS % 2.8 % (0.0-3.0); HEMATOCRIT 38.7 % (36.0-47.0); HEMOGLOBIN 12.6 g/dl (12.0-15.5); LYMPH # 1.3 10^3/uL (1.5-4.5); LYMPH % 18.2 % (24.0-44.0); MEAN CORPUSCULAR HEMOGLOBIN 31.7 pg (27.0-33.0); MEAN CORPUSCULAR HGB CONC 32.6 g/dl (32.0-36.5); MEAN CORPUSCULAR VOLUME 97.2 fl (80.0-96.0); MONO # 0.6 10^3/uL (0.0-0.8); MONO % 8.6 % (0.0-5.0); NEUTROPHILS # 4.8 10^3/uL (1.8-7.7); NEUTROPHILS % 69.6 % (36.0-66.0); PLATELET COUNT, AUTOMATED 175 10^3/uL (150-450); RED BLOOD COUNT 3.98 10^6/uL (4.00-5.40); WHITE BLOOD COUNT 6.9 10^3/uL (4.0-10.0)
[2019-02-02 12:01] LABS: ALBUMIN 3.9 GM/DL (3.2-5.2); BILIRUBIN,TOTAL 0.6 MG/DL (0.2-1.0); CALCIUM LEVEL 10.4 MG/DL (8.8-10.2); CREATININE FOR GFR 1.59 MG/DL (0.55-1.30); GLOMERULAR FILTRATION RATE 32.9 (>32); POTASSIUM SERUM 4.6 MEQ/L (3.5-5.1); TOTAL PROTEIN 7.6 GM/DL (6.4-8.2)
[2019-02-02 12:07] LABS: INR 1.07; PROTHROMBIN TIME 13.6 SECONDS (11.8-14.0)
== END ==
LOC: M LABDRAW1 09:40
PROVIDERS: ATTEND Family Medicine
DX: I10 Essential (primary) hypertension (principal); Z79.82 Long term (current) use of aspirin; Z79.899 Other long term (current) drug therapy

== ENCOUNTER 2019-02-08 06:02 | Day surgery (SDC) | payer MEDICARE ==
[~2019-02-08] VITALS: Ht 152.4 cm; Wt 75.7 kg
[~2019-02-08 06:02] MED LIST changes: +LIDOCAINE 1% MDV 20ML VIAL SQ PRN
[2019-02-08] MEDS ORDERED: LR 1,000 ML IV ONE (06:15)
[2019-02-08] MEDS ORDERED: POVIDONE-IODINE 5% OPHTH PREP SOL 30ML As Ordered ONE (06:58)
[2019-02-08] MEDS ORDERED: LIDOCAINE 2% W/EPIN INJ 20ML **PRES FREE As Ordered ONE (07:00)
[2019-02-08] MEDS ORDERED: ceFAZolin SOD 1 GM in D5W MINI-BAG PLUS 50 ML IV ONE (07:00)
[2019-02-08] MEDS ORDERED: BACITRACIN OINT 30GM As Ordered ONE (07:00)
[2019-02-08] MEDS ORDERED: MIDAZOLAM INJ 2 MG/2 ML VIAL (J2250) As Ordered ONE (07:51)
[2019-02-08] MEDS ORDERED: propofoL 200 MG/20 ML VIAL As Ordered ONE (07:51)
--- NOTE | 2019-02-08 09:06 | POST-OPPD ---
Postoperative Procedure Note Date Of Procedure: Feb 08, 2019 PREOPERATIVE DIAGNOSIS: Right ear malignant lesion POSTOPERATIVE DIAGNOSIS: same FINDINGS: 0.5x1cm lesion right ear helix PROCEDURE: Excisional biopsy right ear lesion with local advance flaps closure of the defect. SURGEON: Dr Singer ANESTHESIA: Local with sedation SPECIMENS: Right ear lesion (FS), suture at 12 O'clock. Right ear lesion permanent. ESTIMATED BLOOD LOSS: 1 cc REPLACED: none DRAINS: none COMPLICATIONS: none POSTOPERATIVE CONDITION: stable Dict: [id number] ABBEY SINGER DO Feb 08, 2019 09:06
[2019-02-08 09:25] VITALS: BP 106/54
--- NOTE | 2019-02-08 13:15 | RO ---
DATE OF OPERATION: 02/08/2019 PREOPERATIVE DIAGNOSIS: Right ear malignant lesion. POSTOPERATIVE DIAGNOSIS: Right ear malignant lesion. PROCEDURE: Excisional biopsy right ear lesion with local advanced flaps closure of the defect. FINDINGS: There was a 0.5 x 1 cm lesion on the right ear in the middle helix. ATTENDING SURGEON: Chrystal Daniel DO ANESTHESIA: Local with sedation. SPECIMEN SENT: Right ear lesion frozen section with suture marking 12 o'clock and the rest of the specimen is sent for permanent. BLOOD LOSS: 1 mL. COMPLICATIONS: No complications. DRAINS: No drains. PROCEDURE: This is an 83-year-old female who has a scaling red lesion on her right ear that was highly suspicious for squamous cell by her primary. Patient would like to have this excised and closed in one sitting, so choosing to do it in the operating room with frozen section for pathology. All the risks, benefits and alternatives were discussed with the patient. She is ready to proceed. She was brought into the operating room, placed in supine position. Preoperative antibiotics were given. Sequentials were placed on the lower calves. The area was prepped and draped in the usual sterile fashion. We gave a periauricular block with 2% lidocaine with epinephrine, totaling 5 mL total for the full infiltration. The lesion is easily identified. It is pink and scaly, with indentation in the middle. It was measured 0.5 x 1 cm and we did a full thickness excision, and the lesion is sent to pathology and the 12 o'clock marking suture. After clear margins were declared, the local flaps were created to close the defect. The flap was done from the posterior portion of the ear and along the helix rim, so those flaps were then brought into one and closed with interrupted #4-0 Monocryl sutures and #5-0 Monocryl sutures. Xeroform and a Band-Aid were applied. The patient tolerated the procedure and was transferred to the recovery room in stable condition. [place]
== END 2019-02-08 09:50 | disposition home or self-care (01) ==
LOC: M SDC 06:02
PROVIDERS: ATTEND Plastic Surgery Surgery of the Hand
DX: C44.222 Squamous cell carcinoma of skin of right ear and external auricular canal (principal); L57.0 Actinic keratosis; C44.722 Squamous cell carcinoma of skin of right lower limb, including hip; I13.10 Hypertensive heart and chronic kidney disease without heart failure, with stage 1 through stage 4 chronic kidney disease, or unspecified chronic kidney disease; I50.30 Unspecified diastolic (congestive) heart failure; N18.3 Chronic kidney disease, stage 3 (moderate); I71.2 Thoracic aortic aneurysm, without rupture; E78.5 Hyperlipidemia, unspecified; E11.22 Type 2 diabetes mellitus with diabetic chronic kidney disease; I25.810 Atherosclerosis of coronary artery bypass graft(s) without angina pectoris; D47.2 Monoclonal gammopathy; K57.32 Diverticulitis of large intestine without perforation or abscess without bleeding; M85.80 Other specified disorders of bone density and structure, unspecified site; M47.819 Spondylosis without myelopathy or radiculopathy, site unspecified; L65.9 Nonscarring hair loss, unspecified; E55.9 Vitamin D deficiency, unspecified; D50.9 Iron deficiency anemia, unspecified; K22.5 Diverticulum of esophagus, acquired; K59.09 Other constipation; E21.3 Hyperparathyroidism, unspecified; K21.9 Gastro-esophageal reflux disease without esophagitis; M12.9 Arthropathy, unspecified; F41.9 Anxiety disorder, unspecified; R06.09 Other forms of dyspnea; Z88.8 Allergy status to other drugs, medicaments and biological substances; Z79.899 Other long term (current) drug therapy; Z79.82 Long term (current) use of aspirin; Z95.4 Presence of other heart-valve replacement; Z90.710 Acquired absence of both cervix and uterus; Z78.0 Asymptomatic menopausal state; Z96.652 Presence of left artificial knee joint; Z96.1 Presence of intraocular lens; Z98.41 Cataract extraction status, right eye; Z98.42 Cataract extraction status, left eye
CPT/HCPCS: 14060; 88305; 88331; J0690; J2250

== ENCOUNTER → 2019-04-08 | Outpatient (REF) | payer MEDICARE ==
[~2019-04-08] MED LIST changes: -LIDOCAINE 1% MDV 20ML VIAL SQ PRN
[2019-04-08 15:59] LABS: CALCIUM LEVEL 11.4 MG/DL (8.8-10.2); CREATININE FOR GFR 1.57 MG/DL (0.55-1.30); GLOMERULAR FILTRATION RATE 33.4 (>32); POTASSIUM SERUM 4.8 MEQ/L (3.5-5.1)
== END ==
LOC: M LABDRAW1 11:22
PROVIDERS: ATTEND Physician Assistant
DX: I50.32 Chronic diastolic (congestive) heart failure (principal)

== ENCOUNTER → 2019-05-02 | Outpatient (CLI) | payer MEDICARE ==
--- NOTE | 2019-05-02 11:46 | REPMRS ---
Patient History The patient states she has not had a clinical breast exam in over a year. Family history of breast cancer at age 80 in maternal grandmother, breast cancer at age 80 in paternal grandmother, breast cancer at age 50 or over in maternal aunt. Took hormonal contraceptives for 2 years. Took estrogen for 20 years. 3D TOMOSYNTHESIS WAS PERFORMED. [facility] lifetime risk for breast cancer is 0.7%. Digital Mammo Screening Bilat: May 02, 2019 - Exam #: [id number] Bilateral CC and MLO view(s) were taken. Technologist: Kaci Haque, Technologist Prior study comparison: February 18, 2018, bilateral digital woman screen mammo, performed at [facility]. February 09, 2017, digital woman screen mammo, performed at [facility]. FINDINGS: There are scattered fibroglandular densities. There has been no change in the appearance of the mammogram from the prior studies. There is a mild amount of residual fibroglandular tissue which is fairly symmetric. There is no interval development of dominant mass, architectural distortion, or clustered microcalcification suggestive of malignancy. Assessment: BI-RADS/ACR category 1 mammogram. Negative Mammogram. Recommendation Routine screening mammogram in 1 year (for women over age 40). This mammogram was interpreted with the aid of an FDA-approved computer-aided dectection system. Electronically Signed By: Gus Abdalla MD 05/02/19 [id number]
== END ==
LOC: M RAD 11:03
PROVIDERS: ATTEND Family Medicine
DX: Z12.31 Encounter for screening mammogram for malignant neoplasm of breast (principal)

== ENCOUNTER → 2019-06-30 | Outpatient (REF) | payer MEDICARE ==
[2019-06-30 19:46] LABS: CALCIUM LEVEL 10.9 MG/DL (8.8-10.2); CREATININE FOR GFR 1.48 MG/DL (0.55-1.30); GLOMERULAR FILTRATION RATE 35.8 (>32); MAGNESIUM LEVEL 2.3 MG/DL (1.8-2.4); POTASSIUM SERUM 4.3 MEQ/L (3.5-5.1)
== END ==
LOC: M LABDRAW1 18:38
PROVIDERS: ATTEND Physician Assistant
DX: I50.32 Chronic diastolic (congestive) heart failure (principal); E83.42 Hypomagnesemia

== ENCOUNTER → 2019-07-06 | Outpatient (CLI) | payer MEDICARE ==
[2019-07-06 13:03] LABS: BASO % 0.6 % (0.0-1.0); EOS # 0.2 10^3/uL (0.0-0.5); EOS % 3.4 % (0.0-3.0); HEMATOCRIT 39.5 % (36.0-47.0); HEMOGLOBIN 12.7 g/dl (12.0-15.5); LYMPH # 1.2 10^3/uL (1.5-5.0); LYMPH % 19.7 % (24.0-44.0); MEAN CORPUSCULAR HEMOGLOBIN 31.6 pg (27.0-33.0); MEAN CORPUSCULAR HGB CONC 32.2 g/dl (32.0-36.5); MEAN CORPUSCULAR VOLUME 98.3 fl (80.0-96.0); MONO # 0.5 10^3/uL (0.0-0.8); MONO % 8.4 % (0.0-5.0); NEUTROPHILS # 4.2 10^3/uL (1.5-8.5); NEUTROPHILS % 67.3 % (36.0-66.0); PLATELET COUNT, AUTOMATED 188 10^3/uL (150-450); RED BLOOD COUNT 4.02 10^6/uL (4.00-5.40); WHITE BLOOD COUNT 6.2 10^3/uL (4.0-10.0)
[2019-07-06 13:56] LABS: C REACTIVE PROTEIN QUANTITATIV < 0.30 MG/DL (0.00-0.30); CHOLESTEROL LEVEL 183 MG/DL (<200); CHOLESTEROL RISK RATIO 4.357 (<5); FERRITIN 112 NG/ML (8-252); HDL CHOLESTEROL 42 MG/DL (>40); LDL CHOLESTEROL 87 MG/DL (<100); NON-HDL-C 141 MG/DL; PTH INTACT 192.6 PG/ML (18.5-88.0); TOTAL 25(OH) VITAMIN D 61.2 NG/ML (30.0-100.0); TRIGLYCERIDES LEVEL 270 MG/DL (<150)
--- NOTE | 2019-07-06 14:37 | REPPI ---
BILATERAL FOOT SERIES: Eight views total. HISTORY: Bilateral foot pain. FINDINGS: Four views of each foot demonstrate diffuse soft tissue swelling of the distal calf and about the ankle across of the dorsal forefoot soft tissues. There are dystrophic chronic venous insufficiency type soft tissue calcifications bilaterally. Overall mineralization pattern is normal. There is a mild bilateral hallux valgus. 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 The left-sided changes are little more prominent than the right and primarily affected tarsometatarsal joints. No erosive change is seen. No bony destructive lesion is seen. IMPRESSION: Osteoarthritic midfoot changes bilaterally. Diffuse soft tissue swelling and soft tissue calcification. Electronically Signed by Asaf Greco MD 07/06/2019 05:41 P
== END ==
LOC: M PLAIMG 09:33
PROVIDERS: ATTEND Nurse Practitioner Family
DX: E11.9 Type 2 diabetes mellitus without complications (principal); E21.3 Hyperparathyroidism, unspecified; E55.9 Vitamin D deficiency, unspecified; D50.9 Iron deficiency anemia, unspecified; E78.5 Hyperlipidemia, unspecified; M79.671 Pain in right foot

== ENCOUNTER → 2019-10-19 | Outpatient (REF) | payer MEDICARE ==
[2019-10-19 13:07] LABS: CALCIUM LEVEL 11.5 MG/DL (8.8-10.2); CREATININE FOR GFR 1.62 MG/DL (0.55-1.30); GLOMERULAR FILTRATION RATE 32.1 (>32); MAGNESIUM LEVEL 2.4 MG/DL (1.8-2.4); POTASSIUM SERUM 4.5 MEQ/L (3.5-5.1)
== END ==
LOC: M LABDRAW1 10:19
PROVIDERS: ATTEND Physician Assistant
DX: I50.32 Chronic diastolic (congestive) heart failure (principal); E83.42 Hypomagnesemia

== ENCOUNTER → 2019-10-19 | Outpatient (REF) | payer MEDICARE ==
[~2019-10-19] MED LIST changes: -LISI-1046 PO; +LISI2.5T2 PO
[2019-10-19 13:15] LABS: APPEARANCE, URINE CLOUDY (CLEAR); BACTERIA, URINE AUTO 2+ (NEGATIVE); BILIRUBIN, URINE AUTO NEGATIVE (NEGATIVE); BLOOD, URINE BLOOD NEGATIVE (NEGATIVE); COLOR, URINE YELLOW (YELLOW); GLUCOSE, URINE (UA) AUTO NEGATIVE (NEGATIVE); KETONE, URINE AUTO NEGATIVE (NEGATIVE); LEUKOCYTE ESTERASE, URINE AUTO 2+ (NEGATIVE); MUCUS, URINE SMALL (NEGATIVE); NITRITE, URINE AUTO NEGATIVE (NEGATIVE); PROTEIN, URINE AUTO 1+ mg/dL (NEGATIVE); RBC, URINE AUTO 3 /HPF (0-3); SPECIFIC GRAVITY URINE AUTO 1.015 (1.002-1.035); SQUAMOUS EPITHELIAL CELL UR AU 15 /HPF (0-6); UROBILINOGEN, URINE AUTO 0.2 mg/dL (0.0-2.0); WBC, URINE AUTO 13 /HPF (0-3)
[2019-10-19 13:21] LABS: ALBUMIN 3.8 GM/DL (3.2-5.2); BLOOD UREA NITROGEN 30 MG/DL (7-18); C REACTIVE PROTEIN QUANTITATIV < 0.30 MG/DL (0.00-0.30); CALCIUM LEVEL 11.6 MG/DL (8.8-10.2); CARBON DIOXIDE LEVEL 30 MEQ/L (21-32); CHLORIDE LEVEL 101 MEQ/L (98-107); CHOLESTEROL LEVEL 180 MG/DL (<200); CHOLESTEROL RISK RATIO 4.615 (<5); CPK CREATINE PHOSPHOKINASE 55 U/L (26-192); CREATININE FOR GFR 1.64 MG/DL (0.55-1.30); FREE T4 1.08 NG/DL (0.76-1.46); GLOMERULAR FILTRATION RATE 31.7 (>32); GLUCOSE, FASTING 117 MG/DL (70-100); HDL CHOLESTEROL 39 MG/DL (>40); LDL CHOLESTEROL 83 MG/DL (<100); NON-HDL-C 141 MG/DL; PHOSPHORUS LEVEL 2.9 MG/DL (2.5-4.9); POTASSIUM SERUM 4.6 MEQ/L (3.5-5.1); SODIUM LEVEL 136 MEQ/L (136-145); TRIGLYCERIDES LEVEL 291 MG/DL (<150)
[2019-10-19 13:28] LABS: HEMOGLOBIN A1c 6.5 %
[2019-10-19 13:41] LABS: MAU/CREAT RATIO 134.4 MCG/MG (0.0-30.0)
[2019-10-21 08:13] LABS: FREE KAPPA LIGHT CHAINS SERUM 48.2 mg/L (3.3-19.4); FREE KAPPA LIGHT CHAINS URINE 626.59 mg/L (0.63-113.79); FREE LAMBDA LIGHT CHAINS URINE 83.06 mg/L (0.47-11.77); KAPPA/LAMBDA RATIO SERUM 1.46 (0.26-1.65); KAPPA/LAMBDA RATIO URINE 7.54 (1.03-31.76)
== END ==
LOC: M LABDRAW1 10:21
PROVIDERS: ATTEND Family Medicine
DX: D47.2 Monoclonal gammopathy (principal); E78.5 Hyperlipidemia, unspecified; E11.9 Type 2 diabetes mellitus without complications; E21.3 Hyperparathyroidism, unspecified

== ENCOUNTER → 2019-11-10 | Outpatient (REF) | payer MEDICARE ==
[~2019-11-10] MED LIST changes: +LISI-1046 PO; -LISI2.5T2 PO
[2019-11-10 13:15] LABS: ALBUMIN 3.7 GM/DL (3.2-5.2); CREATININE FOR GFR 1.57 MG/DL (0.55-1.30); GLOMERULAR FILTRATION RATE 33.3 (>32); PHOSPHORUS LEVEL 2.8 MG/DL (2.5-4.9); POTASSIUM SERUM 4.5 MEQ/L (3.5-5.1); PTH INTACT 176.2 PG/ML (18.5-88.0); TOTAL 25(OH) VITAMIN D 71.2 NG/ML (30.0-100.0); TOTAL PROTEIN 7.5 GM/DL (6.4-8.2)
== END ==
LOC: M LABDRAW1 12:08
PROVIDERS: ATTEND Family Medicine
DX: E21.3 Hyperparathyroidism, unspecified (principal)

== ENCOUNTER → 2020-02-10 | Outpatient (CLI) | payer MEDICARE ==
[~2020-02-10] MED LIST changes: -LISI-1046 PO; +LISI2.5T2 PO; +PANT40TA29 PO; -PANT40TA3 PO
[2020-02-10 12:28] LABS: CALCIUM LEVEL 11.2 MG/DL (8.8-10.2); CREATININE FOR GFR 1.89 MG/DL (0.55-1.30); GLOMERULAR FILTRATION RATE 26.9 (>32); MAGNESIUM LEVEL 2.6 MG/DL (1.8-2.4); POTASSIUM SERUM 4.3 MEQ/L (3.5-5.1)
== END ==
LOC: M LAB 11:34
PROVIDERS: ATTEND Physician Assistant
DX: I50.32 Chronic diastolic (congestive) heart failure (principal); Z79.82 Long term (current) use of aspirin

== ENCOUNTER → 2020-02-20 | Outpatient (CLI) | payer MEDICARE | LOC: M WHC 13:31 | PROVIDERS: ATTEND Family Medicine | DX: M85.80 Other specified disorders of bone density and structure, unspecified site (principal) ==

== ENCOUNTER → 2020-02-20 | Outpatient (CLI) | payer MEDICARE ==
--- NOTE | 2020-05-01 12:08 | DEXA ---
AP SPINE L1 - L4 1.174 -0.2 1.8 LT FEMUR TOTAL 0.764 -1.9 0.4 LT NECK 0.736 -2.2 0.2 RT FEMUR TOTAL 0.782 -1.8 0.5 RT NECK 0.760 -2.0 0.4 TOTAL BODY TOTAL OTHER COMMENTS: Normal bone densitometry of the spine. There is low bone density of the hips. The density of the spine is increased 6.8% since the initial exam on 04/24/2003. The increased 1.0% since the most recent exam on 02/18/2018. The density of the left hip has decreased 13.9% since the initial exam on 04/24/2003. The density of the left hip has decreased 1.8% since the most recent exam on 02/18/2018. The density of the right hip has decreased 14.2% since the initial exam on 04/24/2003. The density of the right hip has decreased 6.6% since the most recent exam on 02/18/2018. FOLLOW-UP: Recommendation for the next bone density exam: 2 years. [place]
== END ==
LOC: M WHC 17:19
PROVIDERS: ATTEND Family Medicine
DX: M85.89 Other specified disorders of bone density and structure, multiple sites (principal)

== ENCOUNTER → 2020-03-12 | Outpatient (REF) | payer MEDICARE ==
[2020-04-28 19:58] LABS: HEMATOCRIT 40.1 % (36.0-47.0); HEMOGLOBIN 12.8 g/dl (12.0-15.5); MEAN CORPUSCULAR HEMOGLOBIN 31.4 pg (27.0-33.0); MEAN CORPUSCULAR HGB CONC 31.9 g/dl (32.0-36.5); MEAN CORPUSCULAR VOLUME 98.3 fl (80.0-96.0); PLATELET COUNT, AUTOMATED 167 10^3/uL (150-450); RED BLOOD COUNT 4.08 10^6/uL (4.00-5.40); WHITE BLOOD COUNT 6.8 10^3/uL (4.0-10.0)
[2020-05-07 23:52] LABS: ALBUMIN 3.7 GM/DL (3.2-5.2); ALT/SGPT 19 U/L (12-78); BILIRUBIN,TOTAL 0.5 MG/DL (0.2-1.0); BLOOD UREA NITROGEN 26 MG/DL (7-18); CALCIUM LEVEL 11.6 MG/DL (8.8-10.2); CARBON DIOXIDE LEVEL 29 MEQ/L (21-32); CHLORIDE LEVEL 106 MEQ/L (98-107); CHOLESTEROL LEVEL 172 MG/DL (<200); CREATININE FOR GFR 1.61 MG/DL (0.55-1.30); GLOMERULAR FILTRATION RATE 32.4 (>32); GLUCOSE, FASTING 119 MG/DL (70-100); HDL CHOLESTEROL 39 MG/DL (>40); LDL CHOLESTEROL 85 MG/DL (<100); NON-HDL-C 133 MG/DL; POTASSIUM SERUM 4.6 MEQ/L (3.5-5.1); PTH INTACT 201.5 PG/ML (18.5-88.0); SODIUM LEVEL 136 MEQ/L (136-145); TOTAL 25(OH) VITAMIN D 45.7 NG/ML (30.0-100.0); TOTAL PROTEIN 7.4 GM/DL (6.4-8.2); TRIGLYCERIDES LEVEL 238 MG/DL (<150)
[2020-05-07 23:58] LABS: TOTAL PROTEIN 7.4 GM/DL (6.4-8.2)
== END ==
LOC: M SFHCPLAZ 11:39
PROVIDERS: ATTEND Family Medicine
DX: I12.9 Hypertensive chronic kidney disease with stage 1 through stage 4 chronic kidney disease, or unspecified chronic kidney disease (principal)

== ENCOUNTER → 2020-04-20 | Outpatient (CLI) | payer MEDICARE ==
[2020-04-20 13:51] LABS: HEMATOCRIT 39.8 % (36.0-47.0); HEMOGLOBIN 12.7 g/dl (12.0-15.5); MEAN CORPUSCULAR HGB CONC 31.9 g/dl (32.0-36.5); MEAN CORPUSCULAR VOLUME 97.1 fl (80.0-96.0); PLATELET COUNT, AUTOMATED 169 10^3/uL (150-450)
[2020-04-20 14:11] LABS: ALBUMIN 3.6 GM/DL (3.2-5.2); ALT/SGPT 21 U/L (12-78); BILIRUBIN,TOTAL 0.5 MG/DL (0.2-1.0); BLOOD UREA NITROGEN 19 MG/DL (7-18); CALCIUM LEVEL 12.1 MG/DL (8.8-10.2); CARBON DIOXIDE LEVEL 28 MEQ/L (21-32); CHLORIDE LEVEL 107 MEQ/L (98-107); CREATININE FOR GFR 1.54 MG/DL (0.55-1.30); FERRITIN 100 NG/ML (8-252); FREE T4 1.14 NG/DL (0.76-1.46); GLOMERULAR FILTRATION RATE 34.1 (>32); GLUCOSE, FASTING 114 MG/DL (70-100); NT-PRO BNP 317 PG/ML (<450); POTASSIUM SERUM 4.6 MEQ/L (3.5-5.1); SODIUM LEVEL 139 MEQ/L (136-145); TOTAL PROTEIN 7.3 GM/DL (6.4-8.2)
[2020-04-20 14:17] LABS: HEMOGLOBIN A1c 5.8 %
[2020-04-24 14:46] LABS: ALBUMIN % 54.6 % (55.8-66.1); ALPHA-1-GLOBULIN % 4.6 % (2.9-4.9); ALPHA-2-GLOBULINS % 12.5 % (7.1-11.8); BETA-1-GLOBULINS % 6.5 % (4.7-7.2); BETA-2-GLOBULINS % 6.6 % (3.2-6.5); GAMMA GLOBULIN % 15.2 % (11.1-18.8)
[2020-04-24 14:47] LABS: ALBUMIN 3.99 GM/DL (3.29-5.55); ALPHA-1-GLOBULINS 0.34 GM/DL (0.17-0.41); ALPHA-2-GLOBULINS 0.91 GM/DL (0.42-0.99); BETA-1-GLOBULINS 0.47 GM/DL (0.28-0.60); BETA-2-GLOBULINS 0.48 GM/DL (0.19-0.55); GAMMA GLOBULINS 1.11 GM/DL (0.65-1.58)
== END ==
LOC: M PLALAB 09:45
PROVIDERS: ATTEND Family Medicine
DX: I10 Essential (primary) hypertension (principal)

== ENCOUNTER → 2020-06-20 | Outpatient (REF) | payer MEDICARE ==
[2020-06-20 13:54] LABS: BASO % 0.7 % (0.0-1.0); EOS # 0.2 10^3/uL (0.0-0.5); EOS % 3.1 % (0.0-3.0); HEMATOCRIT 40.7 % (36.0-47.0); HEMOGLOBIN 13.1 g/dl (12.0-15.5); LYMPH # 1.2 10^3/uL (1.5-5.0); LYMPH % 19.4 % (24.0-44.0); MEAN CORPUSCULAR HEMOGLOBIN 30.8 pg (27.0-33.0); MEAN CORPUSCULAR HGB CONC 32.2 g/dl (32.0-36.5); MEAN CORPUSCULAR VOLUME 95.8 fl (80.0-96.0); MONO # 0.5 10^3/uL (0.0-0.8); MONO % 8.1 % (0.0-5.0); NEUTROPHILS # 4.1 10^3/uL (1.5-8.5); NEUTROPHILS % 68.4 % (36.0-66.0); PLATELET COUNT, AUTOMATED 175 10^3/uL (150-450); RED BLOOD COUNT 4.25 10^6/uL (4.00-5.40)
[2020-06-20 14:52] LABS: ALBUMIN 3.7 GM/DL (3.2-5.2); BILIRUBIN,TOTAL 0.5 MG/DL (0.2-1.0); CALCIUM LEVEL 12.5 MG/DL (8.8-10.2); CREATININE FOR GFR 1.44 MG/DL (0.55-1.30); GLOMERULAR FILTRATION RATE 36.8 (>32); MAGNESIUM LEVEL 2.6 MG/DL (1.8-2.4); POTASSIUM SERUM 4.4 MEQ/L (3.5-5.1); TOTAL PROTEIN 7.4 GM/DL (6.4-8.2)
[2020-06-23 06:11] LABS: FREE KAPPA LIGHT CHAINS SERUM 45.7 mg/L (3.3-19.4); FREE KAPPA LIGHT CHAINS URINE 980.25 mg/L (0.63-113.79); FREE LAMBDA LIGHT CHAINS SERUM 32.3 mg/L (5.7-26.3); FREE LAMBDA LIGHT CHAINS URINE 112.1 mg/L (0.47-11.77); KAPPA/LAMBDA RATIO SERUM 1.41 (0.26-1.65); KAPPA/LAMBDA RATIO URINE 8.74 (1.03-31.76)
== END ==
LOC: M SFHCPLAZ 10:14
PROVIDERS: ATTEND Family Medicine
DX: I50.30 Unspecified diastolic (congestive) heart failure (principal)

== ENCOUNTER → 2020-07-17 | Outpatient (REF) | payer MEDICARE ==
[2020-07-17 13:32] LABS: ALBUMIN 3.7 GM/DL (3.2-5.2); BLOOD UREA NITROGEN 18 MG/DL (7-18); CALCIUM LEVEL 10.7 MG/DL (8.8-10.2); CARBON DIOXIDE LEVEL 28 MEQ/L (21-32); CHLORIDE LEVEL 105 MEQ/L (98-107); GLOMERULAR FILTRATION RATE 35.1 (>32); GLUCOSE, FASTING 121 MG/DL (70-100); POTASSIUM SERUM 4.4 MEQ/L (3.5-5.1); PTH INTACT 316.3 PG/ML (18.5-88.0); SODIUM LEVEL 138 MEQ/L (136-145); TOTAL PROTEIN 7.4 GM/DL (6.4-8.2)
[2020-07-23 13:34] LABS: ALBUMIN % 54.1 % (55.8-66.1); ALPHA-1-GLOBULIN % 4.7 % (2.9-4.9); ALPHA-1-GLOBULINS 0.35 GM/DL (0.17-0.41); ALPHA-2-GLOBULINS 0.95 GM/DL (0.42-0.99); ALPHA-2-GLOBULINS % 12.8 % (7.1-11.8); BETA-1-GLOBULINS 0.51 GM/DL (0.28-0.60); BETA-1-GLOBULINS % 6.9 % (4.7-7.2); BETA-2-GLOBULINS 0.47 GM/DL (0.19-0.55); BETA-2-GLOBULINS % 6.4 % (3.2-6.5); GAMMA GLOBULIN % 15.1 % (11.1-18.8); GAMMA GLOBULINS 1.12 GM/DL (0.65-1.58)
== END ==
LOC: M SFHCPLAZ 10:57
PROVIDERS: ATTEND Family Medicine
DX: E21.3 Hyperparathyroidism, unspecified (principal)

== ENCOUNTER → 2020-09-21 | Outpatient (REF) | payer MEDICARE ==
[~2020-09-21] MED LIST changes: +LISI10TA22 PO; -LISI10TA4 PO
[2020-09-21 15:33] LABS: BASO % 0.5 % (0.0-1.0); EOS # 0.2 10^3/uL (0.0-0.5); HEMATOCRIT 39.4 % (36.0-47.0); HEMOGLOBIN 12.5 g/dl (12.0-15.5); LYMPH # 1.6 10^3/uL (1.5-5.0); LYMPH % 21.1 % (24.0-44.0); MEAN CORPUSCULAR HGB CONC 31.7 g/dl (32.0-36.5); MEAN CORPUSCULAR VOLUME 94.7 fl (80.0-96.0); MONO # 0.8 10^3/uL (0.0-0.8); MONO % 9.8 % (2.0-8.0); NEUTROPHILS % 65.2 % (36.0-66.0); PLATELET COUNT, AUTOMATED 192 10^3/uL (150-450); RED BLOOD COUNT 4.16 10^6/uL (4.00-5.40); WHITE BLOOD COUNT 7.7 10^3/uL (4.0-10.0)
[2020-09-21 15:56] LABS: HEMOGLOBIN A1c 5.7 %
[2020-09-21 16:06] LABS: ALBUMIN 3.7 GM/DL (3.2-5.2); BILIRUBIN,TOTAL 0.4 MG/DL (0.2-1.0); CALCIUM LEVEL 10.2 MG/DL (8.8-10.2); CREATININE FOR GFR 1.37 MG/DL (0.55-1.30); POTASSIUM SERUM 4.7 MEQ/L (3.5-5.1); TOTAL PROTEIN 7.3 GM/DL (6.4-8.2)
[2020-09-21 16:13] LABS: PTH INTACT 262.1 PG/ML (18.5-88.0)
== END ==
LOC: M SFHCPLAZ 13:03
PROVIDERS: ATTEND Family Medicine
DX: I50.30 Unspecified diastolic (congestive) heart failure (principal); E21.3 Hyperparathyroidism, unspecified; E11.9 Type 2 diabetes mellitus without complications; D50.9 Iron deficiency anemia, unspecified

== ENCOUNTER → 2021-01-04 | Outpatient (REF) | payer MEDICARE ==
[2021-01-04 15:18] LABS: ALBUMIN 3.7 GM/DL (3.2-5.2); BILIRUBIN,TOTAL 0.6 MG/DL (0.2-1.0); CALCIUM LEVEL 9.2 MG/DL (8.8-10.2); CREATININE FOR GFR 1.45 MG/DL (0.55-1.30); GLOMERULAR FILTRATION RATE 36.4 (>32); POTASSIUM SERUM 4.3 MEQ/L (3.5-5.1); TOTAL PROTEIN 7.2 GM/DL (6.4-8.2)
[2021-01-04 15:27] LABS: HEMOGLOBIN A1c 5.6 %
== END ==
LOC: M PLALAB 09:44
PROVIDERS: ATTEND Physician Assistant Medical
DX: E21.3 Hyperparathyroidism, unspecified (principal); E11.9 Type 2 diabetes mellitus without complications

== ENCOUNTER → 2021-03-19 | Outpatient (REF) | payer MEDICARE ==
[~2021-03-19] MED LIST changes: -LISI2.5T2 PO; +LISI2.5T9 PO
== END ==
LOC: M SFHCPLAZ 10:03
PROVIDERS: ATTEND Physician Assistant Medical
DX: L85.9 Epidermal thickening, unspecified (principal)

== ENCOUNTER → 2021-05-02 | Outpatient (CLI) | payer MEDICARE ==
[~2021-05-02] MED LIST changes: -KLOR10TA76 PO; +POTA-136 PO
[2021-05-02 13:43] LABS: BASO % 0.6 % (0.0-1.0); EOS # 0.1 10^3/uL (0.0-0.5); EOS % 1.5 % (0.0-3.0); HEMATOCRIT 38.6 % (36.0-47.0); HEMOGLOBIN 12.5 g/dl (12.0-15.5); LYMPH # 1.3 10^3/uL (1.5-5.0); LYMPH % 18.5 % (24.0-44.0); MEAN CORPUSCULAR HEMOGLOBIN 30.3 pg (27.0-33.0); MEAN CORPUSCULAR HGB CONC 32.4 g/dl (32.0-36.5); MEAN CORPUSCULAR VOLUME 93.5 fl (80.0-96.0); MONO # 0.6 10^3/uL (0.0-0.8); MONO % 8.3 % (2.0-8.0); NEUTROPHILS # 5.2 10^3/uL (1.5-8.5); NEUTROPHILS % 70.8 % (36.0-66.0); PLATELET COUNT, AUTOMATED 185 10^3/uL (150-450); RED BLOOD COUNT 4.13 10^6/uL (4.00-5.40); WHITE BLOOD COUNT 7.3 10^3/uL (4.0-10.0)
[2021-05-02 16:19] LABS: ALBUMIN 3.7 GM/DL (3.2-5.2); BILIRUBIN,TOTAL 0.6 MG/DL (0.2-1.0); CALCIUM LEVEL 9.6 MG/DL (8.8-10.2); CHOLESTEROL RISK RATIO 3.893 (<5); CREATININE FOR GFR 1.29 MG/DL (0.55-1.30); FREE T4 1.26 NG/DL (0.76-1.46); GLOMERULAR FILTRATION RATE 41.7 (>32); MAGNESIUM LEVEL 2.1 MG/DL (1.8-2.4); POTASSIUM SERUM 4.1 MEQ/L (3.5-5.1); THYROID STIMULATING HORMONE 1.7 uIU/ML (0.358-3.740); TOTAL 25(OH) VITAMIN D 38.4 NG/ML (30.0-100.0); TOTAL PROTEIN 7.6 GM/DL (6.4-8.2)
== END ==
LOC: M PLALAB 09:58
PROVIDERS: ATTEND Family Medicine
DX: I50.30 Unspecified diastolic (congestive) heart failure (principal)

== ENCOUNTER → 2021-09-11 | Outpatient (CLI) | payer MEDICARE ==
[2021-09-11 13:40] LABS: HEMOGLOBIN A1c 5.7 %
[2021-09-11 13:46] LABS: ALBUMIN 3.8 GM/DL (3.2-5.2); BLOOD UREA NITROGEN 24 MG/DL (7-18); CALCIUM LEVEL 9.5 MG/DL (8.8-10.2); CARBON DIOXIDE LEVEL 28 MEQ/L (21-32); CHLORIDE LEVEL 103 MEQ/L (98-107); CHOLESTEROL LEVEL 185 MG/DL (<200); CHOLESTEROL RISK RATIO 4.111 (<5); CREATININE FOR GFR 1.39 MG/DL (0.55-1.30); FERRITIN 110 NG/ML (8-252); GLOMERULAR FILTRATION RATE 38.3 (>32); GLUCOSE, FASTING 98 MG/DL (70-100); HDL CHOLESTEROL 45 MG/DL (>40); LDL CHOLESTEROL 94 MG/DL (<100); NON-HDL-C 140 MG/DL; NT-PRO BNP 142 PG/ML (<450); PHOSPHORUS LEVEL 2.9 MG/DL (2.5-4.9); POTASSIUM SERUM 4.8 MEQ/L (3.5-5.1); SODIUM LEVEL 139 MEQ/L (136-145); TOTAL PROTEIN 7.2 GM/DL (6.4-8.2); TRIGLYCERIDES LEVEL 230 MG/DL (<150)
[2021-09-11 17:02] LABS: TOTAL 25(OH) VITAMIN D 37.6 NG/ML (30.0-100.0)
[2021-09-11 17:03] LABS: PTH INTACT 123.9 PG/ML (18.5-88.0)
== END ==
LOC: M PLALAB 09:19
PROVIDERS: ATTEND Family Medicine
DX: E55.9 Vitamin D deficiency, unspecified (principal); E78.00 Pure hypercholesterolemia, unspecified; D50.9 Iron deficiency anemia, unspecified

== ENCOUNTER → 2022-02-04 | Outpatient (CLI) | payer MEDICARE ==
[2022-02-04 11:18] LABS: BASO % 0.6 % (0.0-1.0); EOS # 0.3 10^3/uL (0.0-0.5); HEMATOCRIT 40.1 % (36.0-47.0); HEMOGLOBIN 12.9 g/dl (12.0-15.5); LYMPH # 1.3 10^3/uL (1.5-5.0); LYMPH % 19.4 % (24.0-44.0); MEAN CORPUSCULAR HEMOGLOBIN 30.3 pg (27.0-33.0); MEAN CORPUSCULAR HGB CONC 32.2 g/dl (32.0-36.5); MEAN CORPUSCULAR VOLUME 94.1 fl (80.0-96.0); MONO # 0.4 10^3/uL (0.0-0.8); MONO % 5.9 % (2.0-8.0); NEUTROPHILS # 4.7 10^3/uL (1.5-8.5); NEUTROPHILS % 69.4 % (36.0-66.0); PLATELET COUNT, AUTOMATED 216 10^3/uL (150-450); RED BLOOD COUNT 4.26 10^6/uL (4.00-5.40); WHITE BLOOD COUNT 6.7 10^3/uL (4.0-10.0)
[2022-02-04 13:01] LABS: CREATININE FOR GFR 1.16 MG/DL (0.55-1.30); POTASSIUM SERUM 4.4 MEQ/L (3.5-5.1)
[2022-02-04 13:02] LABS: ALBUMIN 3.4 GM/DL (3.2-5.2); BILIRUBIN,TOTAL 0.6 MG/DL (0.2-1.0); CALCIUM LEVEL 9.1 MG/DL (8.8-10.2); CHOLESTEROL RISK RATIO 4.23 (<5); MAGNESIUM LEVEL 2.3 MG/DL (1.8-2.4); TOTAL PROTEIN 7.2 GM/DL (6.4-8.2)
[2022-02-04 13:44] LABS: PTH INTACT 219.6 PG/ML (18.5-88.0)
[2022-02-04 23:30] LABS: HEMOGLOBIN A1c 5.6 %
== END ==
LOC: M LAB 10:48
PROVIDERS: ATTEND Family Medicine
DX: R73.01 Impaired fasting glucose (principal); E78.00 Pure hypercholesterolemia, unspecified; D50.9 Iron deficiency anemia, unspecified

== ENCOUNTER → 2022-02-26 | Outpatient (CLI) | payer MEDICARE | LOC: M PLAIMG 15:07 → M PLALAB 15:07 | PROVIDERS: ATTEND Family Medicine | DX: M47.816 Spondylosis without myelopathy or radiculopathy, lumbar region (principal); M25.78 Osteophyte, vertebrae ==

== ENCOUNTER → 2022-02-28 | Outpatient (CLI) | payer MEDICARE | LOC: M WHC 15:48 | PROVIDERS: ATTEND Family Medicine | DX: Z12.31 Encounter for screening mammogram for malignant neoplasm of breast (principal) ==

== ENCOUNTER 2022-04-11 12:35 | Inpatient (IN) | payer MEDICARE ==
[~2022-04-11] VITALS: Ht 152.4 cm; Wt 65.9 kg
[2022-04-11 13:52] LABS: BASO % 0.1 % (0.0-1.0); EOS % 0.1 % (0.0-3.0); HEMATOCRIT 46.2 % (36.0-47.0); HEMOGLOBIN 15.8 g/dl (12.0-15.5); LYMPH # 0.6 10^3/uL (1.5-5.0); LYMPH % 4.3 % (24.0-44.0); MEAN CORPUSCULAR HEMOGLOBIN 31.3 pg (27.0-33.0); MEAN CORPUSCULAR HGB CONC 34.2 g/dl (32.0-36.5); MEAN CORPUSCULAR VOLUME 91.7 fl (80.0-96.0); MONO # 0.6 10^3/uL (0.0-0.8); MONO % 4.2 % (2.0-8.0); NEUTROPHILS % 90.9 % (36.0-66.0); PLATELET COUNT, AUTOMATED 210 10^3/uL (150-450); RED BLOOD COUNT 5.04 10^6/uL (4.00-5.40); WHITE BLOOD COUNT 14.3 10^3/uL (4.0-10.0)
[2022-04-11] MEDS ORDERED: ONDANSETRON 4MG 2ML VIAL IV ONE (14:20)
[2022-04-11 14:42] LABS: RSV AMPLIFICATION NEGATIVE (NEGATIVE)
[2022-04-11 14:46] LABS: ALBUMIN 4.1 GM/DL (3.2-5.2); BILIRUBIN,DIRECT 0.2 MG/DL (0.0-0.2); BILIRUBIN,TOTAL 1.4 MG/DL (0.2-1.0); CALCIUM LEVEL 11.1 MG/DL (8.8-10.2); CREATININE FOR GFR 1.41 MG/DL (0.55-1.30); GLOMERULAR FILTRATION RATE 37.6 (>32); POTASSIUM SERUM 4.3 MEQ/L (3.5-5.1); TOTAL PROTEIN 8.4 GM/DL (6.4-8.2)
[2022-04-11] MEDS ORDERED: MORPHINE 2 MG/ML 1ML VIAL IV PRN (15:50)
[2022-04-11] MEDS ORDERED: ISOVUE-370 76% 100ML VIAL As Ordered ONE (15:50)
[2022-04-11] MEDS ORDERED: PROMETHAZINE 25MG/ML 1ML VIAL IV ONE (15:50)
[2022-04-11] MEDS ORDERED: NS 1,000 ML IV ONE ×2 (16:00→16:40)
[2022-04-11] MEDS ORDERED: CINA30TA4 PO (18:01)
[2022-04-11] MEDS ORDERED: HOME MED LIST COMPLETE! XX SCH (18:05)
[2022-04-11] MEDS ORDERED: GLUCOSE 4GM CHEW TABLET PO PRN (18:45)
[2022-04-11] MEDS ORDERED: ONDANSETRON 4MG 2ML VIAL IV PRN (18:45)
[2022-04-11] MEDS ORDERED: DEXTROSE 50% 50 ML SYRINGE IV PRN (18:45)
[2022-04-11] MEDS: NS 1,000 ML IV SCH (18:45)
[2022-04-11] MEDS ORDERED: GLUCAGON INJ 1MG VIAL SC PRN (18:45)
[2022-04-11] MEDS ORDERED: LABETALOL 100MG/20ML VIAL IV PRN (18:50)
[2022-04-11] MEDS ORDERED: METOCLOPRAMIDE INJ 10MG/2ML VIAL (J2765 PER 1) IV PRN (20:35)
[2022-04-11] MEDS: PANTOPRAZOLE 40MG VIAL IV SCH (21:31)
[2022-04-11] MEDS: MORPHINE 2 MG/ML 1ML VIAL IV PRN (21:32)
[2022-04-11] MEDS: ONDANSETRON 4MG 2ML VIAL IV PRN (21:32)
[2022-04-11 21:37] VITALS: BP 138/74
[2022-04-12] MEDS ORDERED: ACETAMINOPHEN 1000MG 100ML IV BTL (OFIRMEV) (J0131 PER 10MG) IV ONE (00:55)
[2022-04-12 05:20] VITALS: BP 129/63
[2022-04-12] MEDS ORDERED: IPRATROPIUM 0.5MG/ALBUTEROL 2.5MG INH SOL UD 3ML (DUONEB) NEB ONE (05:35)
[2022-04-12 06:59] LABS: BASO % 0.2 % (0.0-1.0); EOS % 0.1 % (0.0-3.0); LYMPH # 0.8 10^3/uL (1.5-5.0); LYMPH % 5.8 % (24.0-44.0); MEAN CORPUSCULAR HEMOGLOBIN 30.6 pg (27.0-33.0); MEAN CORPUSCULAR HGB CONC 32.6 g/dl (32.0-36.5); MEAN CORPUSCULAR VOLUME 94.1 fl (80.0-96.0); MONO # 0.7 10^3/uL (0.0-0.8); MONO % 5.1 % (2.0-8.0); NEUTROPHILS # 11.7 10^3/uL (1.5-8.5); NEUTROPHILS % 88.4 % (36.0-66.0); PLATELET COUNT, AUTOMATED 183 10^3/uL (150-450); RED BLOOD COUNT 4.57 10^6/uL (4.00-5.40); WHITE BLOOD COUNT 13.3 10^3/uL (4.0-10.0)
[2022-04-12 07:37] LABS: CALCIUM LEVEL 9.9 MG/DL (8.8-10.2); CREATININE FOR GFR 1.25 MG/DL (0.55-1.30); GLOMERULAR FILTRATION RATE 43.2 (>32); POTASSIUM SERUM 3.6 MEQ/L (3.5-5.1)
[2022-04-12] MEDS: NS 1,000 ML IV SCH ×2 (09:29→12:25)
[2022-04-12] MEDS: PANTOPRAZOLE 40MG VIAL IV SCH ×2 (09:30→20:12)
[2022-04-12 14:00] VITALS: BP 134/68
[2022-04-12] MEDS ORDERED: GASTROGRAFIN SOLUTION 30ML (Q9963) PO ONE (14:00)
[2022-04-12] MEDS: HEPARIN SOD (PORCINE) 5000UNITS/ML 1ML VIAL/SYRINGE SQ SCH ×2 (15:00→21:12)
[2022-04-12] MEDS: LR 1,000 ML IV SCH (15:07)
[2022-04-12 19:49] VITALS: BP 137/72
[2022-04-13] MEDS: ONDANSETRON 4MG 2ML VIAL IV PRN (01:27)
[2022-04-13] MEDS: MORPHINE 2 MG/ML 1ML VIAL IV PRN ×2 (01:28→08:39)
[2022-04-13 05:06] VITALS: BP 146/72
[2022-04-13] MEDS ORDERED: LEVALBUTEROL 1.25 MG/0.5 ML CONCENTRATE NEB INH PRN (05:25)
[2022-04-13] MEDS: HEPARIN SOD (PORCINE) 5000UNITS/ML 1ML VIAL/SYRINGE SQ SCH ×3 (05:46→21:24)
[2022-04-13] MEDS ORDERED: LORazepam 2 MG/ML VIAL As Ordered ONE (06:33)
[2022-04-13] MEDS ORDERED: LORazepam 2 MG/ML VIAL IV ONE (07:00)
[2022-04-13] MEDS: LR 1,000 ML IV SCH (07:54)
[2022-04-13] MEDS: PANTOPRAZOLE 40MG VIAL IV SCH ×2 (08:26→20:10)
[2022-04-13 08:51] LABS: HEMATOCRIT 43.2 % (36.0-47.0); HEMOGLOBIN 14.4 g/dl (12.0-15.5); MEAN CORPUSCULAR HEMOGLOBIN 31.1 pg (27.0-33.0); MEAN CORPUSCULAR HGB CONC 33.3 g/dl (32.0-36.5); MEAN CORPUSCULAR VOLUME 93.3 fl (80.0-96.0); PLATELET COUNT, AUTOMATED 213 10^3/uL (150-450); RED BLOOD COUNT 4.63 10^6/uL (4.00-5.40); WHITE BLOOD COUNT 16.6 10^3/uL (4.0-10.0)
[2022-04-13 09:22] LABS: CALCIUM LEVEL 10.1 MG/DL (8.8-10.2); CREATININE FOR GFR 1.28 MG/DL (0.55-1.30); POTASSIUM SERUM 3.3 MEQ/L (3.5-5.1)
[2022-04-13] MEDS ORDERED: KCL 10MEQ/100ML SWI (KRUN) 10 MEQ in IV 1 EA IV SCH ×2 (13:00→14:00)
[2022-04-13] MEDS: AMPICILLIN SOD/SULBACTAM SOD 3 GM in D5W MINI-BAG PLUS 100 ML IV SCH (14:44)
[2022-04-13] MEDS ORDERED: KCL 40MEQ in NS 1000ML 1,000 ML IV SCH (15:00)
[2022-04-13 22:13] VITALS: BP 141/90
[2022-04-14] MEDS: AMPICILLIN SOD/SULBACTAM SOD 3 GM in D5W MINI-BAG PLUS 100 ML IV SCH ×2 (02:22→14:51)
[2022-04-14] MEDS: HEPARIN SOD (PORCINE) 5000UNITS/ML 1ML VIAL/SYRINGE SQ SCH ×3 (06:00→21:30)
[2022-04-14 06:50] VITALS: BP 130/83
[2022-04-14 06:51] LABS: BASO % 0.3 % (0.0-1.0); EOS % 0.2 % (0.0-3.0); HEMATOCRIT 44.9 % (36.0-47.0); HEMOGLOBIN 14.2 g/dl (12.0-15.5); LYMPH # 0.6 10^3/uL (1.5-5.0); LYMPH % 5.4 % (24.0-44.0); MEAN CORPUSCULAR HEMOGLOBIN 30.7 pg (27.0-33.0); MEAN CORPUSCULAR HGB CONC 31.6 g/dl (32.0-36.5); MEAN CORPUSCULAR VOLUME 97.2 fl (80.0-96.0); MONO # 0.6 10^3/uL (0.0-0.8); MONO % 5.7 % (2.0-8.0); NEUTROPHILS # 9.4 10^3/uL (1.5-8.5); PLATELET COUNT, AUTOMATED 157 10^3/uL (150-450); RED BLOOD COUNT 4.62 10^6/uL (4.00-5.40); WHITE BLOOD COUNT 10.6 10^3/uL (4.0-10.0)
[2022-04-14 07:29] LABS: CALCIUM LEVEL 9.9 MG/DL (8.8-10.2); CREATININE FOR GFR 1.05 MG/DL (0.55-1.30); GLOMERULAR FILTRATION RATE 52.8 (>32)
[2022-04-14] MEDS ORDERED: D5W/LR 1,000 ML IV SCH (07:40)
[2022-04-14] MEDS: PANTOPRAZOLE 40MG VIAL IV SCH ×2 (09:36→21:30)
[2022-04-14] MEDS ORDERED: LR 1,000 ML IV SCH (13:50)
[2022-04-14 14:00] VITALS: BP 128/79
[2022-04-14 21:00] VITALS: BP 124/74
[2022-04-14] MEDS: ROSUVASTATIN 10 MG TAB (CRESTOR) PO SCH (21:30)
[2022-04-15] MEDS: AMPICILLIN SOD/SULBACTAM SOD 3 GM in D5W MINI-BAG PLUS 100 ML IV SCH ×2 (02:36→13:16)
[2022-04-15 06:00] VITALS: BP 120/74
[2022-04-15] MEDS: HEPARIN SOD (PORCINE) 5000UNITS/ML 1ML VIAL/SYRINGE SQ SCH ×4 (06:01→20:44)
[2022-04-15] MEDS: ASPIRIN 81MG ENTERIC TABLET PO SCH (08:48)
[2022-04-15] MEDS: PANTOPRAZOLE 40MG VIAL IV SCH ×2 (08:48→20:35)
[2022-04-15] MEDS ORDERED: AUGMSUS PO (13:37)
[2022-04-15 14:00] VITALS: BP 128/52
[2022-04-15 20:00] VITALS: BP 128/55
[2022-04-15] MEDS: ROSUVASTATIN 10 MG TAB (CRESTOR) PO SCH (20:36)
[2022-04-16] MEDS: AMPICILLIN SOD/SULBACTAM SOD 3 GM in D5W MINI-BAG PLUS 100 ML IV SCH ×2 (01:13→14:24)
[2022-04-16 05:00] VITALS: BP 126/53
[2022-04-16] MEDS: HEPARIN SOD (PORCINE) 5000UNITS/ML 1ML VIAL/SYRINGE SQ SCH ×3 (05:34→14:24)
[2022-04-16] MEDS: PANTOPRAZOLE 40MG VIAL IV SCH (08:51)
[2022-04-16] MEDS: ASPIRIN 81MG ENTERIC TABLET PO SCH (08:51)
[2022-04-16 14:00] VITALS: BP 129/53
== END 2022-04-16 15:43 | disposition home health service (06) | DRG 388 ==
LOC: M ED 12:35 → ENRESERV 18:58 → M MSPAV 20:05 → M ED 20:45 → OBSVTOIN 04-13 17:02
PROVIDERS: ADMIT Internal Medicine; ATTEND Internal Medicine
DX: K56.50 Intestinal adhesions [bands], unspecified as to partial versus complete obstruction (principal); J96.01 Acute respiratory failure with hypoxia; J69.0 Pneumonitis due to inhalation of food and vomit; I50.32 Chronic diastolic (congestive) heart failure; E87.1 Hypo-osmolality and hyponatremia; I13.0 Hypertensive heart and chronic kidney disease with heart failure and stage 1 through stage 4 chronic kidney disease, or unspecified chronic kidney disease; N18.30 Chronic kidney disease, stage 3 unspecified; E78.5 Hyperlipidemia, unspecified; E21.0 Primary hyperparathyroidism; K21.9 Gastro-esophageal reflux disease without esophagitis; M85.80 Other specified disorders of bone density and structure, unspecified site; D72.829 Elevated white blood cell count, unspecified; K22.5 Diverticulum of esophagus, acquired; E87.6 Hypokalemia; I25.10 Atherosclerotic heart disease of native coronary artery without angina pectoris; D47.2 Monoclonal gammopathy; M47.816 Spondylosis without myelopathy or radiculopathy, lumbar region; Z95.3 Presence of xenogenic heart valve; Z90.49 Acquired absence of other specified parts of digestive tract; Z96.652 Presence of left artificial knee joint; Z95.1 Presence of aortocoronary bypass graft; Z87.891 Personal history of nicotine dependence; Z79.82 Long term (current) use of aspirin; Z79.899 Other long term (current) drug therapy; Z88.8 Allergy status to other drugs, medicaments and biological substances

== ENCOUNTER → 2022-04-22 | Outpatient (CLI) | payer MEDICARE ==
[~2022-04-22] MED LIST changes: +AUGMSUS PO; +CINA30TA4 PO
[2022-04-22 17:46] LABS: CALCIUM LEVEL 9.8 MG/DL (8.8-10.2); CREATININE FOR GFR 1.2 MG/DL (0.55-1.30); GLOMERULAR FILTRATION RATE 45.2 (>32); MAGNESIUM LEVEL 2.2 MG/DL (1.8-2.4); POTASSIUM SERUM 4.1 MEQ/L (3.5-5.1)
== END ==
LOC: M PLALAB 15:56
PROVIDERS: ATTEND Physician Assistant
DX: I50.32 Chronic diastolic (congestive) heart failure (principal)

== ENCOUNTER → 2022-06-09 | Outpatient (CLI) | payer MEDICARE ==
[2022-06-09 12:41] LABS: BASO % 0.3 % (0.0-1.0); EOS # 0.2 10^3/uL (0.0-0.5); EOS % 2.8 % (0.0-3.0); HEMATOCRIT 41.1 % (36.0-47.0); HEMOGLOBIN 13.2 g/dl (12.0-15.5); LYMPH # 1.3 10^3/uL (1.5-5.0); LYMPH % 17.9 % (24.0-44.0); MEAN CORPUSCULAR HGB CONC 32.1 g/dl (32.0-36.5); MEAN CORPUSCULAR VOLUME 96.5 fl (80.0-96.0); MONO # 0.6 10^3/uL (0.0-0.8); MONO % 8.3 % (2.0-8.0); NEUTROPHILS # 5.1 10^3/uL (1.5-8.5); NEUTROPHILS % 70.3 % (36.0-66.0); PLATELET COUNT, AUTOMATED 178 10^3/uL (150-450); RED BLOOD COUNT 4.26 10^6/uL (4.00-5.40); WHITE BLOOD COUNT 7.3 10^3/uL (4.0-10.0)
[2022-06-09 12:58] LABS: HEMOGLOBIN A1c 5.8 %
[2022-06-09 13:11] LABS: ALBUMIN 3.6 GM/DL (3.2-5.2); BILIRUBIN,TOTAL 0.6 MG/DL (0.2-1.0); CALCIUM LEVEL 10.1 MG/DL (8.8-10.2); CREATININE FOR GFR 1.18 MG/DL (0.55-1.30); GLOMERULAR FILTRATION RATE 46.1 (>32); POTASSIUM SERUM 4.2 MEQ/L (3.5-5.1); TOTAL PROTEIN 7.2 GM/DL (6.4-8.2)
[2022-06-11 15:07] LABS: FREE KAPPA LIGHT CHAINS SERUM 54.4 mg/L (3.3-19.4); FREE LAMBDA LIGHT CHAINS SERUM 32.7 mg/L (5.7-26.3); INSULIN LEVEL 32.5 uIU/mL (2.6-24.9); KAPPA/LAMBDA RATIO SERUM 1.66 (0.26-1.65)
== END ==
LOC: M PLALAB 08:52
PROVIDERS: ATTEND Family Medicine
DX: D47.2 Monoclonal gammopathy (principal); R73.01 Impaired fasting glucose; I50.30 Unspecified diastolic (congestive) heart failure; E21.3 Hyperparathyroidism, unspecified

== ENCOUNTER → 2022-07-10 | Outpatient (CLI) | payer MEDICARE ==
[2022-07-10 17:41] LABS: ALBUMIN 3.5 G/DL (3.2-5.2); CALCIUM LEVEL 10.3 MG/DL (8.3-10.6); CREATININE FOR GFR 1.16 MG/DL (0.55-1.30); PHOSPHORUS LEVEL 4.8 MG/DL (2.4-5.1); POTASSIUM SERUM 4.5 MMOL/L (3.5-5.1)
[2022-07-10 18:57] LABS: PTH INTACT 102.8 PG/ML (18.5-88.0)
== END ==
LOC: M PLALAB 15:30
PROVIDERS: ATTEND Family Medicine
DX: E21.3 Hyperparathyroidism, unspecified (principal)

== ENCOUNTER → 2022-07-29 | Outpatient (CLI) | payer MEDICARE | LOC: M WHC 14:14 | PROVIDERS: ATTEND Family Medicine | DX: M81.0 Age-related osteoporosis without current pathological fracture (principal) ==

== ENCOUNTER → 2022-09-30 | Outpatient (CLI) | payer MEDICARE ==
[2022-09-30 14:20] LABS: BASO % 0.6 % (0.0-1.0); EOS # 0.2 10^3/uL (0.0-0.5); EOS % 2.3 % (0.0-3.0); HEMATOCRIT 41.5 % (36.0-47.0); HEMOGLOBIN 13.6 g/dl (12.0-15.5); LYMPH # 1.1 10^3/uL (1.5-5.0); LYMPH % 16.4 % (24.0-44.0); MEAN CORPUSCULAR HEMOGLOBIN 31.3 pg (27.0-33.0); MEAN CORPUSCULAR HGB CONC 32.8 g/dl (32.0-36.5); MEAN CORPUSCULAR VOLUME 95.4 fl (80.0-96.0); MONO # 0.5 10^3/uL (0.0-0.8); MONO % 7.5 % (2.0-8.0); NEUTROPHILS % 72.9 % (36.0-66.0); PLATELET COUNT, AUTOMATED 198 10^3/uL (150-450); RED BLOOD COUNT 4.35 10^6/uL (4.00-5.40); WHITE BLOOD COUNT 6.9 10^3/uL (4.0-10.0)
[2022-09-30 14:30] LABS: FERRITIN 109.3 NG/ML (7.3-270.7)
[2022-09-30 14:48] LABS: ALBUMIN 3.8 G/DL (3.2-5.2); BILIRUBIN,TOTAL 0.6 MG/DL (0.3-1.2); CALCIUM LEVEL 10.1 MG/DL (8.3-10.6); CHOLESTEROL RISK RATIO 3.81 (<5); CREATININE FOR GFR 1.25 MG/DL (0.55-1.30); GLOMERULAR FILTRATION RATE 43.1 (>32); HDL CHOLESTEROL 46.9 MG/DL (>40); LDL CHOLESTEROL 95.7 MG/DL (<100); PHOSPHORUS LEVEL 3.4 MG/DL (2.4-5.1); POTASSIUM SERUM 4.4 MMOL/L (3.5-5.1)
[2022-09-30 15:40] LABS: PTH INTACT 99.3 PG/ML (18.5-88.0); TOTAL 25(OH) VITAMIN D 36.3 NG/ML (20.0-100.0); TOTAL PROTEIN 7.6 G/DL (5.7-8.2)
[2022-09-30 20:44] LABS: HEMOGLOBIN A1c 5.7 % (4.0-6.0)
== END ==
LOC: M PLALAB 09:16
PROVIDERS: ATTEND Family Medicine
DX: E21.3 Hyperparathyroidism, unspecified (principal); D50.9 Iron deficiency anemia, unspecified; E78.00 Pure hypercholesterolemia, unspecified

== ENCOUNTER → 2023-01-19 | Outpatient (CLI) | payer MEDICARE ==
[2023-01-19 11:52] LABS: BASO % 0.3 % (0.0-1.0); EOS # 0.1 10^3/uL (0.0-0.5); EOS % 1.7 % (0.0-3.0); HEMATOCRIT 40.6 % (36.0-47.0); LYMPH # 1.1 10^3/uL (1.5-5.0); LYMPH % 13.8 % (24.0-44.0); MEAN CORPUSCULAR HEMOGLOBIN 30.9 pg (27.0-33.0); MEAN CORPUSCULAR VOLUME 96.4 fl (80.0-96.0); MONO # 0.5 10^3/uL (0.0-0.8); MONO % 6.4 % (2.0-8.0); NEUTROPHILS # 6.1 10^3/uL (1.5-8.5); NEUTROPHILS % 77.4 % (36.0-66.0); PLATELET COUNT, AUTOMATED 172 10^3/uL (150-450); RED BLOOD COUNT 4.21 10^6/uL (4.00-5.40); WHITE BLOOD COUNT 7.9 10^3/uL (4.0-10.0)
[2023-01-19 12:23] LABS: ALBUMIN 3.7 G/DL (3.2-5.2); BILIRUBIN,TOTAL 0.6 MG/DL (0.3-1.2); CREATININE FOR GFR 1.16 MG/DL (0.55-1.30); GLOMERULAR FILTRATION RATE 46.9 (>32); POTASSIUM SERUM 4.3 MMOL/L (3.5-5.1); PTH INTACT 107.9 PG/ML (18.5-88.0); TOTAL PROTEIN 6.6 G/DL (5.7-8.2)
[2023-01-21 07:09] LABS: FREE KAPPA LIGHT CHAINS SERUM 49.3 mg/L (3.3-19.4); KAPPA/LAMBDA RATIO SERUM 1.49 (0.26-1.65)
== END ==
LOC: M PLALAB 09:49
PROVIDERS: ATTEND Family Medicine
DX: I50.30 Unspecified diastolic (congestive) heart failure (principal); D47.2 Monoclonal gammopathy; E21.3 Hyperparathyroidism, unspecified

== ENCOUNTER → 2023-01-22 | Outpatient (REF) | payer MEDICARE | LOC: M SFHCPLAZ 15:28 | PROVIDERS: ATTEND Family Medicine | DX: D47.2 Monoclonal gammopathy (principal); I50.30 Unspecified diastolic (congestive) heart failure; E21.3 Hyperparathyroidism, unspecified; D50.9 Iron deficiency anemia, unspecified ==

== ENCOUNTER → 2023-05-22 | Outpatient (CLI) | payer MEDICARE ==
[~2023-05-22] MED LIST changes: +AMOX600S51 PO; -AUGMSUS PO
== END ==
LOC: M WHC 13:54
PROVIDERS: ATTEND Family Medicine
DX: Z12.31 Encounter for screening mammogram for malignant neoplasm of breast (principal); L40.0 Psoriasis vulgaris; R92.1 Mammographic calcification found on diagnostic imaging of breast

== ENCOUNTER → 2023-06-08 | Outpatient (CLI) | payer MEDICARE ==
[2023-06-08 13:58] LABS: BASO % 0.6 % (0.0-1.0); EOS # 0.1 10^3/uL (0.0-0.5); HEMATOCRIT 42.1 % (36.0-47.0); HEMOGLOBIN 13.8 g/dl (12.0-15.5); LYMPH # 0.9 10^3/uL (1.5-5.0); LYMPH % 12.8 % (24.0-44.0); MEAN CORPUSCULAR HEMOGLOBIN 31.7 pg (27.0-33.0); MEAN CORPUSCULAR HGB CONC 32.8 g/dl (32.0-36.5); MEAN CORPUSCULAR VOLUME 96.6 fl (80.0-96.0); MONO # 0.5 10^3/uL (0.0-0.8); MONO % 6.6 % (2.0-8.0); NEUTROPHILS # 5.4 10^3/uL (1.5-8.5); NEUTROPHILS % 77.9 % (36.0-66.0); PLATELET COUNT, AUTOMATED 173 10^3/uL (150-450); RED BLOOD COUNT 4.36 10^6/uL (4.00-5.40); WHITE BLOOD COUNT 6.9 10^3/uL (4.0-10.0)
[2023-06-08 13:59] LABS: ALBUMIN 3.9 G/DL (3.2-5.2); BILIRUBIN,TOTAL 0.6 MG/DL (0.3-1.2); CALCIUM LEVEL 10.1 MG/DL (8.3-10.6); CREATININE FOR GFR 1.05 MG/DL (0.55-1.30); GLOMERULAR FILTRATION RATE 52.7 (>32); POTASSIUM SERUM 4.1 MMOL/L (3.5-5.1); PTH INTACT 162.4 PG/ML (18.5-88.0); TOTAL PROTEIN 7.1 G/DL (5.7-8.2)
[2023-06-08 14:01] LABS: FERRITIN 93.1 NG/ML (7.3-270.7)
[2023-06-08 14:02] LABS: HEMOGLOBIN A1c 5.3 % (4.0-6.0)
== END ==
LOC: M PLALAB 09:58
PROVIDERS: ATTEND Family Medicine
DX: D47.2 Monoclonal gammopathy (principal); D50.9 Iron deficiency anemia, unspecified

== ENCOUNTER → 2023-10-16 | Outpatient (CLI) | payer MEDICARE ==
[2023-10-16 13:46] LABS: HEMOGLOBIN A1c 5.9 % (4.0-6.0)
[2023-10-16 14:01] LABS: ALBUMIN 3.6 G/DL (3.2-5.2); BILIRUBIN,TOTAL 0.6 MG/DL (0.3-1.2); CALCIUM LEVEL 10.6 MG/DL (8.3-10.6); CHOLESTEROL RISK RATIO 3.07 (<5); CREATININE FOR GFR 1.32 MG/DL (0.55-1.30); GLOMERULAR FILTRATION RATE 40.3 (>32); HDL CHOLESTEROL 58.5 MG/DL (>40); LDL CHOLESTEROL 84.7 MG/DL (<100); NON-HDL-C 121.5 MG/DL; POTASSIUM SERUM 3.9 MMOL/L (3.5-5.1); PTH INTACT 133.7 PG/ML (18.5-88.0); TOTAL PROTEIN 6.7 G/DL (5.7-8.2)
== END ==
LOC: M PLALAB 09:29
PROVIDERS: ATTEND Family Medicine
DX: I50.32 Chronic diastolic (congestive) heart failure (principal); D47.2 Monoclonal gammopathy; R73.01 Impaired fasting glucose; E21.3 Hyperparathyroidism, unspecified; E78.5 Hyperlipidemia, unspecified

== ENCOUNTER → 2023-10-22 | Outpatient (REF) | payer MEDICARE | LOC: M SFHCPLAZ 13:32 | PROVIDERS: ATTEND Family Medicine | DX: I50.32 Chronic diastolic (congestive) heart failure (principal); R73.01 Impaired fasting glucose; E21.3 Hyperparathyroidism, unspecified; D50.9 Iron deficiency anemia, unspecified; D47.2 Monoclonal gammopathy ==

== ENCOUNTER → 2024-02-29 | Outpatient (CLI) | payer MEDICARE ==
[~2024-02-29] MED LIST changes: -ROSU40TA4 PO; +ROSU40TA63 PO
[2024-02-29 15:22] LABS: BASO % 0.1 % (0.0-1.0); EOS # 0.2 10^3/uL (0.0-0.5); EOS % 2.1 % (0.0-3.0); HEMATOCRIT 39.7 % (36.0-47.0); HEMOGLOBIN 13.1 g/dl (12.0-15.5); LYMPH # 1.2 10^3/uL (1.5-5.0); LYMPH % 16.6 % (24.0-44.0); MEAN CORPUSCULAR HEMOGLOBIN 31.5 pg (27.0-33.0); MEAN CORPUSCULAR VOLUME 95.4 fl (80.0-96.0); MONO # 0.5 10^3/uL (0.0-0.8); NEUTROPHILS # 5.1 10^3/uL (1.5-8.5); NEUTROPHILS % 73.8 % (36.0-66.0); PLATELET COUNT, AUTOMATED 167 10^3/uL (150-450); RED BLOOD COUNT 4.16 10^6/uL (4.00-5.40)
[2024-02-29 15:41] LABS: ALBUMIN 3.8 G/DL (3.2-5.2); BILIRUBIN,TOTAL 0.5 MG/DL (0.3-1.2); CALCIUM LEVEL 9.9 MG/DL (8.3-10.6); CREATININE FOR GFR 1.13 MG/DL (0.55-1.30); GLOMERULAR FILTRATION RATE 48.3 (>32); POTASSIUM SERUM 4.2 MMOL/L (3.5-5.1); PTH INTACT 225.2 PG/ML (18.5-88.0); TOTAL PROTEIN 7.1 G/DL (5.7-8.2)
[2024-02-29 15:42] LABS: TOTAL 25(OH) VITAMIN D 35.2 NG/ML (20.0-100.0)
[2024-02-29 15:43] LABS: FERRITIN 105.8 NG/ML (7.3-270.7)
[2024-02-29 17:12] LABS: HEMOGLOBIN A1c 5.5 % (4.0-6.0)
[2024-03-01 07:41] LABS: PROTEIN, TOTAL SO 7.2 g/dL (6.1-8.1)
== END ==
LOC: M PLALAB 09:00
PROVIDERS: ATTEND Family Medicine
DX: D50.9 Iron deficiency anemia, unspecified (principal)

== ENCOUNTER 2024-05-23 16:44 | Inpatient (IN) | payer MEDICARE ==
[~2024-05-23] VITALS: Ht 152.4 cm; Wt 62.3 kg
[~2024-05-23 16:44] MED LIST changes: -ROSU40TA63 PO; +ROSU40TA81 PO
[2024-05-23 18:06] LABS: BASO % 0.1 % (0.0-1.0); HEMATOCRIT 42.4 % (36.0-47.0); HEMOGLOBIN 14.7 g/dl (12.0-15.5); LYMPH # 0.4 10^3/uL (1.5-5.0); MEAN CORPUSCULAR HGB CONC 34.7 g/dl (32.0-36.5); MEAN CORPUSCULAR VOLUME 92.4 fl (80.0-96.0); MONO # 0.6 10^3/uL (0.0-0.8); MONO % 3.3 % (2.0-8.0); NEUTROPHILS # 16.3 10^3/uL (1.5-8.5); PLATELET COUNT, AUTOMATED 196 10^3/uL (150-450); RED BLOOD COUNT 4.59 10^6/uL (4.00-5.40); WHITE BLOOD COUNT 17.4 10^3/uL (4.0-10.0)
[2024-05-23 18:40] LABS: ALBUMIN 4.1 G/DL (3.2-5.2); BILIRUBIN,DIRECT 0.2 MG/DL (<0.4); BILIRUBIN,TOTAL 1.1 MG/DL (0.3-1.2); CREATININE FOR GFR 1.14 MG/DL (0.55-1.30); GLOMERULAR FILTRATION RATE 47.8 (>32); POTASSIUM SERUM 4.3 MMOL/L (3.5-5.1); TOTAL PROTEIN 8.2 G/DL (5.7-8.2)
[2024-05-23] MEDS ORDERED: ISOVUE-370 76% 100ML VIAL As Ordered ONE (20:33)
[2024-05-23] MEDS: ONDANSETRON 4MG 2ML VIAL IV ONE (20:40)
[2024-05-23] MEDS: NS 500 ML IV ONE (20:40)
[2024-05-23] MEDS: MORPHINE 2 MG/ML 1ML VIAL IV ONE (20:42)
[2024-05-23] MEDS ORDERED: BISACODYL 10MG SUPP PR PRN (23:30)
[2024-05-23] MEDS ORDERED: TRAZ-186 PO (23:35)
[2024-05-23] MEDS ORDERED: ASPI81TAEC PO (23:35)
[2024-05-23] MEDS ORDERED: ERYT5OIN25 OU (23:35)
[2024-05-24] MEDS ORDERED: PROL60SO SC (00:02)
[2024-05-24] MEDS ORDERED: HOME MED LIST COMPLETE! XX SCH (00:05)
[2024-05-24] MEDS: LR 1,000 ML IV SCH (01:00)
[2024-05-24 01:03] LABS: INR 1.15; PARTIAL THROMBOPLASTIN TIME 24.8 SECONDS (24.8-34.2)
[2024-05-24 01:06] LABS: PROCALCITONIN 0.17 ng/ml
[2024-05-24] MEDS ORDERED: MORPHINE 2 MG/ML 1ML VIAL IV PRN (01:35)
[2024-05-24] MEDS ORDERED: ACETAMINOPHEN *IV* 500 MG in IV 1 EA IV PRN (01:35)
[2024-05-24] MEDS ORDERED: ACETAMINOPHEN *IV* 1,000 MG in IV 1 EA IV PRN (01:35)
[2024-05-24 07:27] LABS: MEAN CORPUSCULAR HEMOGLOBIN 31.2 pg (27.0-33.0); MEAN CORPUSCULAR HGB CONC 33.1 g/dl (32.0-36.5); MEAN CORPUSCULAR VOLUME 94.5 fl (80.0-96.0); PLATELET COUNT, AUTOMATED 135 10^3/uL (150-450); RED BLOOD COUNT 3.81 10^6/uL (4.00-5.40); WHITE BLOOD COUNT 14.1 10^3/uL (4.0-10.0)
[2024-05-24 07:37] LABS: HEMOGLOBIN 11.9 g/dl (12.0-15.5)
[2024-05-24 07:52] LABS: ALBUMIN 3.1 G/DL (3.2-5.2); BILIRUBIN,TOTAL 0.8 MG/DL (0.3-1.2); CALCIUM LEVEL 10.6 MG/DL (8.3-10.6); CREATININE FOR GFR 1.13 MG/DL (0.55-1.30); GLOMERULAR FILTRATION RATE 48.3 (>32); MAGNESIUM LEVEL 2.1 MG/DL (1.8-2.4); POTASSIUM SERUM 3.8 MMOL/L (3.5-5.1); TOTAL PROTEIN 6.2 G/DL (5.7-8.2)
[2024-05-24] MEDS: HEPARIN SOD (PORCINE) 5000UNITS/ML 1ML VIAL/SYRINGE SC SCH (09:00)
[2024-05-24] MEDS ORDERED: COLA100C5 PO (14:13)
[2024-05-24] MEDS ORDERED: SENN8.6T28 PO (14:13)
[2024-05-24] MEDS ORDERED: MIRA3350 PO (14:14)
[2024-05-24 15:45] VITALS: O2SAT 95
[2024-05-24 15:55] VITALS: BP 120/57; TEMP 97.8
== END 2024-05-24 16:15 | disposition home or self-care (01) | DRG 389 ==
LOC: M ED 16:44 → EDBD 16:44 → M ED INP 23:18
PROVIDERS: ADMIT Student in an Organized Health Care Education/Training Program; ATTEND Internal Medicine
DX: K56.600 Partial intestinal obstruction, unspecified as to cause (principal); I50.32 Chronic diastolic (congestive) heart failure; I13.0 Hypertensive heart and chronic kidney disease with heart failure and stage 1 through stage 4 chronic kidney disease, or unspecified chronic kidney disease; K59.00 Constipation, unspecified; K42.9 Umbilical hernia without obstruction or gangrene; E78.5 Hyperlipidemia, unspecified; E21.0 Primary hyperparathyroidism; K21.9 Gastro-esophageal reflux disease without esophagitis; K44.9 Diaphragmatic hernia without obstruction or gangrene; K22.2 Esophageal obstruction; K22.5 Diverticulum of esophagus, acquired; Z66 Do not resuscitate; D47.2 Monoclonal gammopathy; I25.10 Atherosclerotic heart disease of native coronary artery without angina pectoris; M47.816 Spondylosis without myelopathy or radiculopathy, lumbar region; N18.31 Chronic kidney disease, stage 3a; I87.2 Venous insufficiency (chronic) (peripheral); L40.50 Arthropathic psoriasis, unspecified; Z95.3 Presence of xenogenic heart valve; K59.09 Other constipation; Z90.49 Acquired absence of other specified parts of digestive tract; Z95.1 Presence of aortocoronary bypass graft; Z96.652 Presence of left artificial knee joint; Z87.891 Personal history of nicotine dependence; Z79.82 Long term (current) use of aspirin; Z79.899 Other long term (current) drug therapy; Z88.8 Allergy status to other drugs, medicaments and biological substances

== ENCOUNTER → 2024-05-27 | Outpatient (CLI) | payer MEDICARE ==
[~2024-05-27] MED LIST changes: +ASPI81TAEC PO; +COLA100C5 PO; +ERYT5OIN25 OU; +MIRA3350 PO; +PROL60SO SC; +SENN8.6T28 PO; +TRAZ-186 PO
== END ==
LOC: M WHC 12:49
PROVIDERS: ATTEND Family Medicine
DX: Z12.31 Encounter for screening mammogram for malignant neoplasm of breast (principal)

== ENCOUNTER 2024-06-21 08:59 | Inpatient (IN) | payer MEDICARE ==
[~2024-06-21] VITALS: Ht 154.9 cm; Wt 61.7 kg
[~2024-06-21 08:59] MED LIST changes: +ATOR-398 PO; -LIPI80TA PO
[2024-06-21] MEDS ORDERED: NS 500 ML IV ONE (09:05)
[2024-06-21] MEDS ORDERED: ISOVUE-370 76% 100ML VIAL As Ordered ONE (10:09)
[2024-06-21] MEDS: NS 1,000 ML IV ONE (10:13)
[2024-06-21] MEDS: ONDANSETRON 4MG 2ML VIAL IV ONE (10:13)
[2024-06-21 10:18] LABS: BASO % 0.2 % (0.0-1.0); EOS # 0.1 10^3/uL (0.0-0.5); EOS % 0.7 % (0.0-3.0); HEMATOCRIT 43.3 % (36.0-47.0); HEMOGLOBIN 14.5 g/dl (12.0-15.5); LYMPH # 0.3 10^3/uL (1.5-5.0); LYMPH % 1.4 % (24.0-44.0); MEAN CORPUSCULAR HGB CONC 33.5 g/dl (32.0-36.5); MEAN CORPUSCULAR VOLUME 92.5 fl (80.0-96.0); MONO # 0.8 10^3/uL (0.0-0.8); MONO % 4.1 % (2.0-8.0); NEUTROPHILS # 17.7 10^3/uL (1.5-8.5); NEUTROPHILS % 93.1 % (36.0-66.0); PLATELET COUNT, AUTOMATED 168 10^3/uL (150-450); RED BLOOD COUNT 4.68 10^6/uL (4.00-5.40)
[2024-06-21 10:42] LABS: ALBUMIN 4.1 G/DL (3.2-5.2); BILIRUBIN,DIRECT 0.4 MG/DL (<0.4); BILIRUBIN,TOTAL 1.3 MG/DL (0.3-1.2); CALCIUM LEVEL 11.5 MG/DL (8.3-10.6); CREATININE FOR GFR 1.15 MG/DL (0.55-1.30); GLOMERULAR FILTRATION RATE 47.3 (>32); POTASSIUM SERUM 4.1 MMOL/L (3.5-5.1); TOTAL PROTEIN 7.9 G/DL (5.7-8.2)
[2024-06-21] MEDS: MORPHINE 2 MG/ML 1ML VIAL IV ONE (10:42)
[2024-06-21] MEDS: PIPERACILLIN/TAZOBACTAM SOD 4.5 GM in DEXTROSE 5% (D5W) ADV/MINI-BAG 50 ML IV ONE (11:13)
[2024-06-21] MEDS: NS 500 ML IV ONE (11:13)
[2024-06-21] MEDS ORDERED: RA S8.6T3 PO (11:36)
[2024-06-21] MEDS ORDERED: AMMO12LO TOP (11:36)
[2024-06-21] MEDS ORDERED: HOME MED LIST COMPLETE! XX SCH (11:40)
[2024-06-21] MEDS ORDERED: DEXTROSE 50% 50ML SYRINGE IV PRN (11:45)
[2024-06-21] MEDS ORDERED: GLUCOSE 4 GM CHEW PO PRN (11:45)
[2024-06-21] MEDS ORDERED: GLUCAGON INJ 1MG VIAL SC PRN (11:45)
[2024-06-21 13:40] VITALS: BP 123/62; TEMP 97.2; O2SAT 92
[2024-06-21] MEDS: D5W/0.45% SODIUM CHLORIDE 1,000 ML IV SCH (15:00)
[2024-06-21] MEDS: PIPERACILLIN/TAZOBACTAM SOD 3.375 GM in DEXTROSE 5% (D5W) ADV/MINI-BAG 50 ML IV SCH (16:25)
[2024-06-21 23:01] VITALS: BP 120/72; TEMP 97.7; O2SAT 98
[2024-06-22 05:30] VITALS: BP 108/64; TEMP 97.5; O2SAT 93
[2024-06-22 05:59] LABS: BASO % 0.2 % (0.0-1.0); EOS # 0.2 10^3/uL (0.0-0.5); EOS % 1.4 % (0.0-3.0); HEMATOCRIT 33.3 % (36.0-47.0); HEMOGLOBIN 11.2 g/dl (12.0-15.5); LYMPH # 0.5 10^3/uL (1.5-5.0); LYMPH % 4.3 % (24.0-44.0); MEAN CORPUSCULAR HEMOGLOBIN 31.7 pg (27.0-33.0); MEAN CORPUSCULAR HGB CONC 33.6 g/dl (32.0-36.5); MEAN CORPUSCULAR VOLUME 94.3 fl (80.0-96.0); MONO # 0.4 10^3/uL (0.0-0.8); MONO % 3.4 % (2.0-8.0); NEUTROPHILS # 9.7 10^3/uL (1.5-8.5); NEUTROPHILS % 90.2 % (36.0-66.0); PLATELET COUNT, AUTOMATED 111 10^3/uL (150-450); RED BLOOD COUNT 3.53 10^6/uL (4.00-5.40); WHITE BLOOD COUNT 10.8 10^3/uL (4.0-10.0)
[2024-06-22 06:28] LABS: CALCIUM LEVEL 8.8 MG/DL (8.3-10.6); CREATININE FOR GFR 1.09 MG/DL (0.55-1.30); GLOMERULAR FILTRATION RATE 50.3 (>32); MAGNESIUM LEVEL 1.8 MG/DL (1.8-2.4); POTASSIUM SERUM 3.2 MMOL/L (3.5-5.1)
[2024-06-22] MEDS: POTASSIUM CHLORIDE 10MEQ SR TABLET PO ONE (07:53)
[2024-06-22] MEDS ORDERED: CEFD1CAP9 PO (10:25)
[2024-06-22] MEDS ORDERED: METR-265 PO (10:25)
[2024-06-22] MEDS ORDERED: BACI1CAP PO (10:25)
== END 2024-06-22 12:46 | disposition home or self-care (01) | DRG 871 ==
LOC: M ED 08:59 → EDBD 08:59 → M ED INP 11:18 → M MSPAV 13:41
PROVIDERS: ADMIT General Practice; ATTEND General Practice
DX: A41.9 Sepsis, unspecified organism (principal); J69.0 Pneumonitis due to inhalation of food and vomit; K43.6 Other and unspecified ventral hernia with obstruction, without gangrene; I50.32 Chronic diastolic (congestive) heart failure; L40.50 Arthropathic psoriasis, unspecified; N18.31 Chronic kidney disease, stage 3a; I70.0 Atherosclerosis of aorta; E21.0 Primary hyperparathyroidism; I25.10 Atherosclerotic heart disease of native coronary artery without angina pectoris; E78.5 Hyperlipidemia, unspecified; K59.09 Other constipation; K44.9 Diaphragmatic hernia without obstruction or gangrene; I87.2 Venous insufficiency (chronic) (peripheral); M47.816 Spondylosis without myelopathy or radiculopathy, lumbar region; M85.80 Other specified disorders of bone density and structure, unspecified site; K21.9 Gastro-esophageal reflux disease without esophagitis; Z66 Do not resuscitate; Z95.1 Presence of aortocoronary bypass graft; D47.2 Monoclonal gammopathy; K57.90 Diverticulosis of intestine, part unspecified, without perforation or abscess without bleeding; K22.5 Diverticulum of esophagus, acquired; Z95.2 Presence of prosthetic heart valve; Z96.652 Presence of left artificial knee joint; Z79.82 Long term (current) use of aspirin; Z79.899 Other long term (current) drug therapy; Z88.8 Allergy status to other drugs, medicaments and biological substances

== ENCOUNTER → 2024-07-08 | Outpatient (CLI) | payer MEDICARE ==
[~2024-07-08] MED LIST changes: +AMMO12LO TOP; +BACI1CAP PO; +CEFD1CAP9 PO; +RA S8.6T3 PO
[2024-07-08 13:39] LABS: BASO % 0.5 % (0.0-1.0); EOS # 0.1 10^3/uL (0.0-0.5); EOS % 1.7 % (0.0-3.0); HEMATOCRIT 37.4 % (36.0-47.0); HEMOGLOBIN 12.1 g/dl (12.0-15.5); LYMPH # 0.5 10^3/uL (1.5-5.0); LYMPH % 6.6 % (24.0-44.0); MEAN CORPUSCULAR HEMOGLOBIN 30.9 pg (27.0-33.0); MEAN CORPUSCULAR HGB CONC 32.4 g/dl (32.0-36.5); MEAN CORPUSCULAR VOLUME 95.7 fl (80.0-96.0); MONO # 0.7 10^3/uL (0.0-0.8); MONO % 9.2 % (2.0-8.0); NEUTROPHILS # 6.2 10^3/uL (1.5-8.5); NEUTROPHILS % 81.2 % (36.0-66.0); PLATELET COUNT, AUTOMATED 299 10^3/uL (150-450); RED BLOOD COUNT 3.91 10^6/uL (4.00-5.40); WHITE BLOOD COUNT 7.6 10^3/uL (4.0-10.0)
[2024-07-08 14:20] LABS: ALBUMIN 3.1 G/DL (3.2-5.2); BILIRUBIN,TOTAL 0.3 MG/DL (0.3-1.2); CALCIUM LEVEL 10.7 MG/DL (8.3-10.6); CREATININE FOR GFR 1.06 MG/DL (0.55-1.30); POTASSIUM SERUM 4.5 MMOL/L (3.5-5.1)
== END ==
LOC: M PLALAB 11:26
PROVIDERS: ATTEND Physician Assistant Medical
DX: J69.0 Pneumonitis due to inhalation of food and vomit (principal); K56.600 Partial intestinal obstruction, unspecified as to cause; I50.30 Unspecified diastolic (congestive) heart failure

== ENCOUNTER → 2024-07-26 | Outpatient (CLI) | payer MEDICARE ==
[2024-07-26 13:17] LABS: BASO % 0.5 % (0.0-1.0); EOS # 0.2 10^3/uL (0.0-0.5); EOS % 1.9 % (0.0-3.0); HEMOGLOBIN 12.2 g/dl (12.0-15.5); LYMPH # 1.1 10^3/uL (1.5-5.0); LYMPH % 13.5 % (24.0-44.0); MEAN CORPUSCULAR HGB CONC 32.1 g/dl (32.0-36.5); MEAN CORPUSCULAR VOLUME 93.6 fl (80.0-96.0); MONO # 0.6 10^3/uL (0.0-0.8); NEUTROPHILS % 75.5 % (36.0-66.0); PLATELET COUNT, AUTOMATED 212 10^3/uL (150-450); RED BLOOD COUNT 4.06 10^6/uL (4.00-5.40); WHITE BLOOD COUNT 7.9 10^3/uL (4.0-10.0)
[2024-07-26 13:36] LABS: ALBUMIN 3.3 G/DL (3.2-5.2); BILIRUBIN,TOTAL 0.4 MG/DL (0.3-1.2); CALCIUM LEVEL 10.2 MG/DL (8.3-10.6); CHOLESTEROL RISK RATIO 4.44 (<5); CREATININE FOR GFR 1.05 MG/DL (0.55-1.30); GLOMERULAR FILTRATION RATE 52.5 (>32); HDL CHOLESTEROL 42.7 MG/DL (>40); LDL CHOLESTEROL 103.9 MG/DL (<100); NON-HDL-C 147.3 MG/DL; POTASSIUM SERUM 4.5 MMOL/L (3.5-5.1); PTH INTACT 173.6 PG/ML (18.5-88.0); TOTAL PROTEIN 7.3 G/DL (5.7-8.2)
[2024-07-26 13:37] LABS: FERRITIN 224.3 NG/ML (7.3-270.7); FREE T4 1.25 NG/DL (0.89-1.76)
[2024-07-26 13:38] LABS: THYROID STIMULATING HORMONE 1.603 uIU/ML (0.55-4.78); TOTAL 25(OH) VITAMIN D 37.6 NG/ML (20.0-100.0)
[2024-07-26 13:39] LABS: HEMOGLOBIN A1c 5.5 % (4.0-6.0)
[2024-07-27 09:52] LABS: PROTEIN, TOTAL SO 7.1 g/dL (6.1-8.1)
== END ==
LOC: M PLALAB 10:34
PROVIDERS: ATTEND Family Medicine
DX: D50.9 Iron deficiency anemia, unspecified (principal); E07.9 Disorder of thyroid, unspecified; E78.00 Pure hypercholesterolemia, unspecified